=== PATIENT | female | born 1980 | race Caucasian/White ===

== ENCOUNTER 2020-07-14 10:03 | Emergency (ER) | payer OTHER, SELFPAY ==
[2020-07-14 10:32] VITALS: BP 146/82; PULSE 69; RESP 18; TEMP 36.6; O2SAT 100; BMI 34.2
--- NOTE | 2020-07-14 10:57 | HMH.EDUTC ---
[facility] Disposition Clinical Impression: Encounter for laboratory testing for COVID-19 virus Disposition: Home, Self-Care Condition on Discharge: Good Instructions: Preventing the Spread of Coronavirus Discharge Instructions Additional Instructions: You was tested for today for COVID19 your test result should be back within the next 2-4 hours, call back to the [facility] to see if your test results are back and the result You was given a handout with instructions for Self Quarantine and Self isolation for while you wait on test results and what to do if they are positive Referrals: PCP,No [Primary Care Provider] - As needed Forms: Work/School Release Time of Disposition: 11:06 Medical Decision Making - Paddy Inquiry Pt receiving controlled substance: No Paddy was queried for this patient: No Vital Signs: 07/14/20 10:32 Temperature 97.8 F Temperature Source Oral Pulse Rate [Right Brachial] 69 Respiratory Rate 18 Blood Pressure [Right Arm] 146/82 H Blood Pressure Mean [Right Arm] 103 Blood Pressure Source [Right Arm] Automatic Cuff Blood Pressure Position [Right Arm] Sitting 02 Sat by Pulse Oximetry 100 Oxygen Delivery Method Room Air Orders (Tests/Meds): ORDERS Category Date Time Status Covid-19 Nasal PCR ([facility]) Routine Lab 07/14/20 10:18 Received [facility] HPI - General Stated complaint: covid test Time Seen by Provider: 07/14/20 10:58 Mode of Arrival: Ambulatory Source of Information: Patient Limitations: No Limitations Description of Symptoms (Recalled from Triage Doc. by RN): PATIENT NEEDING COVID TEST AFTER BEING EXPOSED TO CO-WORKER LAST WEEK WHO TESTED POSITIVE; DENIES SYMPTOMS HEENT Symptoms (Recalled from RN notes): No Resp Symptoms (Recalled from RN notes): No Skin Symptoms (Recalled from RN notes): No MS Symptoms (Recalled from RN notes): No Functional Status (Recalled from RN notes): WNL - History of Present Illness Provider Complaint: Patient states that she was exposed to co worker last week that recently tested positive for COVID 19 and her employer made her to come and get tested Denies any symptoms - Related Data Home Medications Medication Instructions Recorded Confirmed Buprenorphine HCl/Naloxone HCl 2 each SL DAILY 07/14/20 07/14/20 [Suboxone 8mg/2mg ODT] Allergies Allergy/AdvReac Type Severity Reaction Status Date / Time potassium [POTASSIUM] Allergy Mild Verified 07/14/20 10:36 - Worker's Comp Is this a Worker's Comp case?: No [facility] History - Hepatitis A Screen Drug use history?: No High risk sexual behaviors?: No History of sexually transmitted infection?: No Currently employed?: No Childcare worker?: No Do you have indoor plumbing?: Yes Do you have electricity?: Yes Attestation statement:: This patient has been screened for Hepatitis A risk factors. - Social History Smoking Status: Current every day smoker Tobacco Type: cigarettes # Packs/Day (cigarettes): 1 Alcohol Intake: never Occupational Status: other ROS Obtained: Yes All systems reviewed & no additional complaints, Yes Systems reviewed as appropriate & no additional complaints - Constitutional Constitutional: Reports system reviewed and no additional complaints, except as docu, Denies body ache, Denies chills, Denies fever(s), Denies headache(s) - Eyes Eyes: Reports system reviewed and no additional complaints, except as docu - ENT Ears, Nose, Mouth, and Throat: Reports system reviewed and no additional complaints, except as docu, Denies nasal congestion, Denies nasal discharge, Denies sore throat - Cardiovascular Cardiovascular: Reports system reviewed and no additional complaints, except as docu - Respiratory Respiratory: No chest congestion, No cough, No dyspnea - Gastrointestinal Gastrointestingal: Reports: system reviewed and no additional complaints, except as docu. Denies: diarrhea, nausea, vomiting Physical Exam - General General appearance: alert, in no apparent
[2020-07-14 11:10] VITALS: BP 146/82; PULSE 69; RESP 18; TEMP 36.6; O2SAT 100
== END 2020-07-14 11:12 | disposition home or self-care (01) ==
PROVIDERS: Emergency Provider Nurse Practitioner
DX: Z20.828 Contact with and (suspected) exposure to other viral communicable diseases (principal); F17.210 Nicotine dependence, cigarettes, uncomplicated
CPT/HCPCS: 99201; U0003

== ENCOUNTER → 2022-05-23 15:37 | Outpatient (CLI) | payer BC, SELFPAY ==
[2022-05-23 16:49] LABS: Basophils # 0.1 K/mm3 (0-0.2); Basophils % 1.5 % (0.1-2.0); Eosinophils # 1.3 K/mm3 (0.0-0.4); Eosinophils % 16.9 % (0.1-12.0); Hematocrit 38.6 % (37.0-47.0); Lymphocytes # 2.8 K/mm3 (0.7-4.5); Lymphocytes % 36.1 % (10-50); Mean Corpuscular HGB Conc 31.1 g/dL (31.8-35.4); Mean Corpuscular Hemoglobin 29.4 pg (27.0-31.2); Mean Corpuscular Volume 94.5 fl (81-99); Mean Platelet Volume 8.2 fl (7.4-10.4); Monocytes # 0.4 K/mm3 (0.1-1.0); Monocytes % 5.1 % (1.7-9.3); Neutrophils # 3.1 K/mm3 (1.8-7.8); Neutrophils % 40.4 % (37.0-80.0); Platelet Count 355 K/mm3 (142-424); Red Blood Count 4.09 M/mm3 (4.20-5.40); Red Cell Distribution Width 12.5 % (11.5-17.5); White Blood Count 7.7 K/mm3 (4.8-10.8)
[2022-05-25 08:15] LABS: HIV Screen 4th Generation wRfx Non Reactive (Non Reactive)
[2022-05-27 02:53] LABS: Potassium 3.8 mmoL/L (3.5-5.1); Sodium 137 mmol/L (136-145)
[2022-05-27 02:54] LABS: Anion Gap 20.8 mEq/L (5-15); Bilirubin,Direct < 0.1 mg/dl (0.0-0.4); Bilirubin,Indirect 0.1 mg/dL (0.0-0.9); Bilirubin,Total < 0.2 mg/dl (0.2-1.3); Blood Urea Nitrogen 12 mg/dl (7-17); Calcium 9.1 mg/dl (8.4-10.2); Carbon Dioxide 20 mmol/L (22.0-30.0); Chloride 100 mmol/L (98-107); Creatinine,Serum 1.05 mg/dl (0.52-1.04); Estimated Glomerular Filt Rate 58 ml/min (>60); GFR (African American) 70 ML/MIN (>60); Glucose 89 mg/dl (74-100)
[2022-05-27 02:55] LABS: Alanine Aminotransferase 14 U/L (12-78); Albumin Level 4.1 g/dl (3.5-5.0); Alkaline Phosphatase 62 U/L (38-126); Aspartate Amino Transferase 14 U/L (14-36)
[2022-06-11 17:17] LABS: Hep A Ab, IgM Negative; Hepatitis B Core Antibody IgM Negative; Hepatitis B Surface Antigen Negative; Hepatitis C Antibody 0.2
== END ==
PROVIDERS: Visit Provider Emergency Medicine
DX: F11.20 Opioid dependence, uncomplicated (principal); Z11.4 Encounter for screening for human immunodeficiency virus [HIV]
CPT/HCPCS: 36415; 80048; 80074; 80076; 85025; 86703; G0432

== ENCOUNTER 2022-09-19 09:46 | Emergency (ER) | payer BC, SELFPAY ==
[2022-09-19 11:05] VITALS: BP 140/77; PULSE 58; RESP 20; TEMP 36.8; O2SAT 100; BMI 27.3
--- NOTE | 2022-09-19 11:18 | EXP.UTC ---
Discharge Plan Disposition Patient Disposition: Home, Self-Care Condition: Good Prescriptions Prescriptions: New ibuprofen [IBU] 800 mg tablet 800 mg PO TIDP PRN (Reason: Moderate Pain) Qty: 20 0RF amoxicillin-pot clavulanate 875-125 mg Tablet 1 tab PO Q12H Qty: 20 0RF No Action buprenorphine-naloxone 1 EACH tablet, sublingual 2 each SL DAILY Referrals Follow up/Referrals: Grisel Mendoza APRN [Primary Care Provider] - See instructions Activity Restrictions/Add. Instructions Additional Instructions/Restrictions: Take medication as prescribed Follow up with Dentist as soon as possible Return if needed Straight to ER if any life threatening symptoms Clinical Impressions Clinical Impression: Abscess, dental Stand Alone Forms Stand Alone Forms: Work/School Release Instructions Patient Instructions: DI for Tooth Abscess, DI for Tooth Decay Discharge ED Provider: Sonia Campos [facility] General Stated complaint: RT side mouth pain, possible abcess Mode of Arrival: Ambulatory Source of Information: Patient Limitations: No Limitations Time Seen by Provider: 09/19/22 11:18 Description of Symptoms (Recalled from Triage Doc. by RN): PATIENT C/O SWELLING TO RIGHT SIDE OF FACE THAT STARTED YESTERDAY MORNING D/T POSSIBLE ABSCESS TOOTH HEENT Symptoms (Recalled from RN notes): Yes Resp Symptoms (Recalled from RN notes): No Skin Symptoms (Recalled from RN notes): No MS Symptoms (Recalled from RN notes): No Functional Status (Recalled from RN notes): WNL History of Present Illness Provider Complaint: Patient states that she has several broken and decaying teeth on her right upper gum area States that she woke up with swellign and pressure in her right jaw States that she tried to get into dentist but they couldnt get her in Related Data Home Medications Medication Instructions Recorded Confirmed buprenorphine 8 mg-naloxone 2 mg 2 each SL DAILY ADDICTION 07/14/20 07/14/20 sublingual tablet Previous Rx's Medication Instructions Recorded amoxicillin 875 mg-potassium 1 tab PO Q12H #20 tabs 09/19/22 clavulanate 125 mg tablet ibuprofen 800 mg tablet (IBU) 800 mg PO TIDP PRN Moderate Pain 09/19/22 #20 tabs Allergies Allergy/AdvReac Type Severity Reaction Status Date / Time potassium [POTASSIUM] Allergy Mild Verified 07/14/20 10:36 Worker's Comp Is this a Worker's Comp case?: No PFSH PFSH Disclaimer: The information contained in this section may have been updated after the patient was seen, as this information can be updated by other users. Medical History (Updated 09/19/22 @ 11:23 by Sonia Campos APRN) Anxiety Hypertension Urinary tract infection Surgical History (Updated 09/19/22 @ 11:17 by Dafne Sanz RN) History of section History of spinal surgery Social History (Updated 09/19/22 @ 11:17 by Dafne Sanz RN) Smoking Status: Current every day smoker tobacco type: cigarettes packs per day: 1 alcohol intake: never current occupational status: other Travel in the last 8 weeks: None ROS Obtained: Yes All systems reviewed & no additional complaints except as documented and Yes Systems reviewed as appropriate & no additional complaints except as documented Constitutional Constitutional: Reports system reviewed and no additional complaints, except as documented and Reports as per HPI ENT Ears, Nose, Mouth, and Throat: Reports system reviewed and no additional complaints, except as documented, Reports as per HPI and Reports dental pain (swelling in right jaw area) Physical Exam General General appearance: alert and in no apparent distress Expanded ENT Exam Teeth exam: Present dental caries, fractured tooth #, gingival swelling and other (swelling in right jaw area) Throat exam: Present normal inspection Respiratory Respiratory exam: Present normal lung sounds bilaterally; Absent respiratory distress or wheezes Cardiovascular Card
[2022-09-19 11:23] VITALS: BP 140/77; PULSE 58; RESP 20; TEMP 36.8; O2SAT 100
== END 2022-09-19 11:30 | disposition home or self-care (01) ==
PROVIDERS: Emergency Provider Nurse Practitioner; PCP Nurse Practitioner Family
DX: K04.7 Periapical abscess without sinus (principal)
CPT/HCPCS: 99212; G0463

== ENCOUNTER 2023-02-14 07:22 | Emergency (ER) | payer BC, OTHER, SELFPAY ==
--- NOTE | 2023-02-14 07:29 | ECG_ITS ---
APPROVED REPORT Exam: Resting ECG HR:62 bpm ECG Measurements Heart Rate 62 AXES WV 163 P 46 QRSd 90 QRS 60 QT 412 T 60 QTc 417 Conclusion SINUS RHYTHM NONSPECIFIC T-WAVE ABNORMALITY BORDERLINE ECG UNCONFIRMED REPORT Electronically signed by : Ji Baumann MD 02/14/2023 20:18:56
[2023-02-14 07:31] VITALS: BP 144/92; PULSE 68; RESP 17; TEMP 36.5; O2SAT 98; BMI 22.2
--- NOTE | 2023-02-14 07:34 | XR_ITS ---
FINAL REPORT CLINICAL HISTORY: dyspnea FINDINGS: A single view of the chest was obtained. The heart is normal in size. The mediastinum is unremarkable. Infiltrates, right greater than left, are likely due to acute pneumonia. There is no pleural effusion. There is no pneumothorax. There is no acute osseous abnormality. IMPRESSION: Acute pneumonia, right greater than left. Reviewed, Interpreted and Dictated by Darin Vazquez MD Transcribed by Lea Puri Authenticated and [facility]
[2023-02-14 07:36] VITALS: PULSE 86
--- NOTE | 2023-02-14 07:39 | HMH.EDGENADL ---
Discharge Plan Disposition Patient Disposition: Still a Patient Condition: Fair Prescriptions Prescriptions: New azithromycin 250 mg tablet See Rx Instructions .ROUTE .COMPLEX Qty: 6 0RF Rx Instructions: For 250 mg dose pack: take 500 mg today (day 1), then 250 mg for 4 days (days 2-5) cefdinir 300 mg capsule 300 mg PO BID 7 Days Qty: 14 0RF metronidazole 500 mg tablet 500 mg PO BID 7 Days Qty: 14 0RF No Action buprenorphine-naloxone 1 EACH tablet, sublingual 2 each SL DAILY ibuprofen [IBU] 800 mg tablet 800 mg PO TIDP PRN (Reason: Moderate Pain) Qty: 20 0RF amoxicillin-pot clavulanate 875-125 mg Tablet 1 tab PO Q12H Qty: 20 0RF Referrals Follow up/Referrals: Grisel Mendoza APRN [Primary Care Provider] - See instructions Activity Restrictions/Add. Instructions Additional Instructions/Restrictions: Your medical evaluation today demonstrated several sites of infection. First your urine showed trichomoniasis, and was also suspicious for UTI. Given the fact that you have had chronic intermittent urinary tract infections sometimes those can be untreated sexual transmitted diseases. Gonorrhea and Chlamydia amplification test have been sent please follow-up with primary care doctor regarding the test results of this as they would not be back during her emergency department stay today. Urine culture additionally has been sent and you can follow-up those results in 48 to 72 hours with your primary care physician. Your chest x-ray demonstrated interstitial infiltrates consistent with possible atypical pneumonia versus pneumonitis from your work exposure. We will treat this as a bacterial infection with antibiotics, and please return to the emergency department and/or follow-up with primary care doctor with worsening symptoms. Clinical Impressions Clinical Impression: Acute dyspnea, Atypical pneumonia, UTI (urinary tract infection), Trichomoniasis Discharge ED Provider: Clay Burciaga General Adult HPI <Clay Burciaga MD - Last Filed: 02/14/23 08:12> General Chief complaint: Chest Pain Stated complaint: SOA, Lower back pain Time Seen by Provider: 02/14/23 07:43 Mode of Arrival: Ambulatory Source of Information: Patient Limitations: No Limitations Description of Symptoms (Recalled from ER Triage Doc. by RN): pt comes in with c/o shortness of air, intermittent chest pain both ongoing for 3-4 weeks. pt also c/o kidney pain, pt states she has hx of kidney infections, burning with urination ongoing for 2-3 days. pt reports being seen by someone in her primary care office and being given cipro for a urinary tract infection. pt does take suboxone for IV drug history. pt also states she had a fever yesterday but took ibuprofen. History of Present Illness HPI narrative: 42-year-old female presents with shortness of breath. 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 States that over the last 2 days she has had a change in symptoms she is now having congestion cough that is nonproductive shortness of breath but is also reporting right flank pain with significant history of recurrent UTIs last treated 4 weeks ago with ciprofloxacin. She had fever to 101.0 yesterday took ibuprofen. States that earlier this morning she had a fever of 100.0 at home. Related Data Home Medications Medication Instructions Recorded Confirmed buprenorphine 8 mg-naloxone 2 mg 2 each SL DAILY ADDICTION 07/14/20 02/14/23 sublingual tablet Previous Rx's Medication Instructions Recorded amoxicillin 875 mg-potassium 1 tab PO Q12H #20 tabs 09/19/22 clavulanate 125 mg tablet ibuprofen 800 mg tablet (IBU) 800 mg PO TIDP PRN Moderate Pain 09/19/22 #20 tabs azithromycin 250 mg tablet See Rx Instructions PO .COMPLEX #6 02/14/23 tabs cefdinir 300 mg capsule 300 mg PO BID 7 days #14 caps 0
[2023-02-14 08:01] LABS: Basophils % 0.3 % (0.1-2.0); Eosinophils # 0.4 K/mm3 (0.0-0.4); Eosinophils % 3.4 % (0.1-12.0); Hematocrit 38.4 % (37.0-47.0); Hemoglobin 12.4 g/dL (12.2-16.2); Mean Corpuscular HGB Conc 32.3 g/dL (31.8-35.4); Mean Corpuscular Hemoglobin 28.9 pg (27.0-31.2); Mean Corpuscular Volume 89.5 fl (81-99); Mean Platelet Volume 8.4 fl (7.4-10.4); Monocytes # 0.4 K/mm3 (0.1-1.0); Monocytes % 3.4 % (1.7-9.3); Neutrophils # 10.1 K/mm3 (1.8-7.8); Neutrophils % 77.9 % (37.0-80.0); Platelet Count 343 K/mm3 (142-424); Red Blood Count 4.29 M/mm3 (4.20-5.40); Red Cell Distribution Width 12.8 % (11.5-17.5)
[2023-02-14 08:05] LABS: Coronavirus 19, PCR Not Detected (NotDetected); Influenza A, PCR Not Detected (NotDetected); Influenza B, PCR Not Detected (NotDetected)
[2023-02-14 08:06] VITALS: BP 112/79; PULSE 72; RESP 12; O2SAT 99
--- NOTE | 2023-02-14 08:07 | PC.NURSE ---
RAD at bedside
[2023-02-14 08:12] LABS: Chloride 95 mmol/L (98-107); Potassium 3.7 mmoL/L (3.5-5.1); Sodium 135 mmol/L (136-145)
[2023-02-14 08:15] LABS: Alanine Aminotransferase 18 U/L (12-78); Albumin/Globulin Ratio 1.1 (1.1-1.8); Alkaline Phosphatase 51 U/L (38-126); Anion Gap 15.7 mEq/L (5-15); Aspartate Amino Transferase 26 U/L (14-36); Blood Urea Nitrogen 9 mg/dl (7-17); Carbon Dioxide 28 mmol/L (22.0-30.0); Creatinine Clearance Estimated 117 mL/min (50-200); Estimated Glomerular Filt Rate 92 ml/min (>60); GFR (African American) 112 ML/MIN (>60); Globulin 3.6 g/dL (1.3-3.2); Total Protein,Serum 7.6 g/dl (6.3-8.2)
[2023-02-14 08:16] LABS: Microscopic, Urine URINE MICROSCOPIC (MICROSCOPIC)
[2023-02-14 08:16] LABS: Calcium 8.8 mg/dl (8.4-10.2); Glucose 94 mg/dl (74-100)
--- NOTE | 2023-02-14 08:16 | PC.NURSE ---
Rounded on patient; call light within reach
[2023-02-14 08:20] LABS: C-Reactive Protein 112.7 mg/L (0-4)
[2023-02-14 08:22] LABS: Appearance,Urine CLEAR (Clear); Bilirubin,Urine Negative (Negative); Blood, Urine Negative (Negative); Color,Urine YELLOW (Yellow); Glucose,Urine (UA) Negative (Negative); Ketones,Urine Negative (Negative); Leukocyte Esterase,Urine 2+ (Negative); Nitrate,Urine Negative (Negative); Protein,Urine Negative (Negative); Urobilinogen,Urine 0.2 EU/dl (0.2)
[2023-02-14 08:25] LABS: Urine Pregnancy, HCG Qual. Negative (Negative)
[2023-02-14 08:30] VITALS: BP 115/76; PULSE 61; O2SAT 97
[2023-02-14 08:34] LABS: Procalcitonin 0.341 ng/mL (0.0-2.0)
[2023-02-14 08:45] LABS: Bacteria,Urine 1+ /lpf; WBC,Urine 20-50 #/hpf (0-3)
[2023-02-14 08:46] LABS: Trichomonas,Urine 1+ /lpf
[2023-02-14 09:00] VITALS: BP 107/74; PULSE 50; RESP 17; O2SAT 96
--- NOTE | 2023-02-14 09:00 | PC.NURSE ---
Rounded on patient; pt requested a warm blanket. Call button within reach. Pt resumed resting on ED stretcher at this time
[2023-02-14 09:19] VITALS: BP 107/74; PULSE 51; RESP 12; TEMP 36.6
[2023-02-16 21:16] LABS: Neisseria gonorrhoeae, NAA Negative (Negative)
== END 2023-02-14 09:23 | disposition still patient (30) ==
PROVIDERS: Student in an Organized Health Care Education/Training Program; Emergency Provider Student in an Organized Health Care Education/Training Program; PCP Nurse Practitioner Family
DX: J18.9 Pneumonia, unspecified organism (principal); N39.0 Urinary tract infection, site not specified; F17.210 Nicotine dependence, cigarettes, uncomplicated; R07.9 Chest pain, unspecified
CPT/HCPCS: 71045; 80053; 81001; 81025; 84145; 85025; 86140; 87086; 87491; 87591; 93005; 96361; 96374; 99285; C9803; U0003; U0005

== ENCOUNTER 2024-08-19 14:16 | Outpatient (CLI) | payer OTHER, SELFPAY ==
--- NOTE | 2024-08-19 14:31 | ECG_ITS ---
APPROVED REPORT Exam: Resting ECG HR:62 bpm ECG Measurements Heart Rate 62 AXES ID 162 P 76 QRSd 84 QRS 83 QT 415 T 77 QTc 420 Conclusion SINUS RHYTHM NORMAL ECG UNCONFIRMED REPORT Electronically signed by : Ji Baumann MD 08/20/2024 08:36:09
== END 2024-08-19 23:59 | disposition home or self-care (01) ==
LOC: RT 14:20
PROVIDERS: PCP Nurse Practitioner Family
DX: R94.31 Abnormal electrocardiogram [ECG] [EKG] (principal)
CPT/HCPCS: 93005

== ENCOUNTER 2024-08-26 12:34 | Outpatient (CLI) | payer OTHER, SELFPAY ==
--- NOTE | 2024-08-26 12:57 | ECG_ITS ---
APPROVED REPORT Exam: Resting ECG HR:50 bpm ECG Measurements Heart Rate 50 AXES LA 177 P 40 QRSd 86 QRS 79 QT 458 T 81 QTc 432 Conclusion SINUS BRADYCARDIA BORDERLINE ECG UNCONFIRMED REPORT Electronically signed by : Ji Baumann MD 08/27/2024 17:01:01
== END 2024-08-26 23:59 | disposition home or self-care (01) ==
PROVIDERS: PCP Nurse Practitioner Family; Visit Provider Internal Medicine
DX: R94.31 Abnormal electrocardiogram [ECG] [EKG] (principal)
CPT/HCPCS: 93005

== ENCOUNTER 2025-10-15 11:53 | Outpatient (CLI) | payer OTHER, SELFPAY ==
--- OUTSIDE RECORDS SUMMARY | 2025-10-15 11:56 | XMS_ITS | Clinical Summary ---
Author Organization [facility] Address [address] [place] [address] Phone Care Team Providers Care Qa Test Analyst Name Role Phone No Pcp, Provider Not In [facility] Primary Care [facility] er Unavailable Allergies No known active allergies Medications cyclobenzaprine (FLEXERIL) 5 mg Oral Tablet Take 5 mg by mouth 2 times daily as needed for Muscle spasms. Active Active Problems Problem Noted Date Diagnosed Date At risk for withdrawal 07/27/2024 Intractable nausea and vomiting 07/27/2024 NSVT (nonsustained ventricular tachycardia) 06/18 SVT (supraventricular tachycardia) 07/15/2024 Wound of upper extremity, initial encounter 06/17 Heroin abuse 07/13/2024 Methamphetamine abuse 07/13/2024 Hypokalemia 07/13/2024 Microcytic anemia 07/13/2024 IV drug abuse 07/12/2024 History of heroin abuse 05/03/2021 History of methamphetamine abuse 05/03/2021 Social History Tobacco Use Types Packs/Day Years Used Date Smoking Tobacco: Never Smokeless Tobacco: Never Tobacco Cessation:Counseling Given: Not Answered Comments Unknown Sex and Gender Information Value Date Recorded Sex Assigned at Not on file Legal Sex Female 1:04 PM EDT Gender Identity Not on file Sexual Orientation Not on file Last Filed Vital Signs Vital Sign Reading Time Taken Comments Blood Pressure 166/88 07/29/2024 1:18 PM EDT Pulse 72 07/29/2024 12:14 PM EDT Temperature 37 C (98.6 F) 07/29/2024 12:08 PM EDT Respiratory Rate 18 07/29/2024 12:08 PM EDT Oxygen Saturation 98% 07/29/2024 10:08 AM EDT Inhaled Oxygen Concentration - - Weight 70.1 kg (154 lb 8.7 oz) 07/27/2024 1:40 A M EDT Height 175.3 cm (5' 9 ) 07/27/2024 1:40 AM EDT Body Mass Index 22.82 07/27/2024 1:40 AM EDT Plan of Treatment Health Maintenance Due Date Last Done Comments Annual Wellness Exam 1984 Hepatitis B Vaccine (2 of 3 - 3-dose series) 10/06/1999 09/08/1999 Cervical Cancer Screening 2002 Pap Smear 2002 HPV/Pap Cotest 2011 Breast Cancer Screening 02/15/2025 02/15/2023 COVID-19 Vaccine ( - 2024-2 6 season) 2025 Influenza Vaccine (#1) 2025 DTaP/TDaP/Td (2 - Td or Tdap) 05/03/2031 05/03/2021 Meningococcal B Vaccine Aged Out No l onger eligible based on patient's age to complete this topic Pneumococcal Vaccine 0-49 Aged Out No longer eligible based on patient's age to complete this topic Procedures Procedure Name Priority Date/Time Associated Diagnosis Comments MM MAMMO DIGITAL LOKI SCREEN BILAT Routine 02/15/2023 3:49 PM EDT Screening mammogram, encounter for from Last 3 Months or Most Recently Relevant to Health Maintenance Results * MM MAMMO DIGITAL LOKI SCREEN BILAT (02/15/2023 3:49 PM EDT) Anatomical Region Laterality Modality Breast Bilateral Mammography 02/16/2023 8:29 AM EDT Impressions 02/16/2023 8:29 AM EDT Negative ([id number]) ~ RECOMMENDATION: Routine screening mammogram in 1 year. ~ DISCLAIMER * Any patient with a palpable abnormality, unexplained by breast imaging, should be managed on clinical basis by the attending physician. * Breast imaging has a false negative rate of 15%. * The patient was notified by mail of the results of this examination. *The patient's information was entered into a reminder system with a target due date for the next mammogram, in accordance with the [employer] and the Society of Breast Imaging recommendations. Narrative 02/16/2023 8:29 AM EDT Procedure:MM MAMMO DIGITAL OLKI SCREEN BILAT ~ Reason for exam: screening, asymptomatic. Z12.31-Encounter for screening mammogram for malignant neoplasm of [id number] ~ MM MAMMO DIGITAL LOKI SCREEN BILAT Bilateral CC and MLO view(s) were taken. The breast tissue is heterogeneously dense. This may lower the sensitivity of mammography. Prior study comparison: Compared with prior studies the most recent being No prior studies available for comparison. No mammographic evidence of malignancy. ~ Procedure Note Bradley Osorio III, MD - 02/16/2023 Procedure:MM MAMMO DIGITAL LOKI SCREEN BILAT ~ Reason for exam: screening, asymptomatic. Z12.31-Encounter for screening mammogram for malignant neoplasm of [id number] ~ MM MAMMO DIGITAL LOKI SCREEN BILAT Bilateral CC and MLO view(s) were taken. The breast tissue is heterogeneously dense. This may lower thesensitivity of mammography. Prior study comparison: Compared with prior studies the most recentbeing No prior studies available for comparison. No mammographic evidence of malignancy. ~ IMPRESSION: Negative ([id number]) ~ RECOMMENDATION: Routine screening mammogram in 1 year. ~ DISCLAIMER * Any patient with a palpable abnormality, unexplained by breast imaging, should be managed on clinical basis by the attending physician. * Breast imaging has a false negative rate of 15%. * The patient was notified by mail of the results of this examination. *The patient's information was entered into a reminder system with atarget due date for the next mammogram, in accordance with the [employer] and the Society of Breast Imaging recommendations. us Not In [facility] Provider IMG MAMMOGRAPHY ORDERABLES Final Result from Last 3 Months or Most Recently Relevant to Health Maintenance Insurance [employer] [facility] [place] [address] [employer] [facility] [place] [address] Advance Directives For more information, please contact: [phone] * Full Code (Latest Code Status on File) Date Activated Date Inactivated Comments 07/27/2024 10:43 AM 07/29/2024 7:25 PM * Full Code Date Activated Date Inactivated Comments 07/12/2024 9:09 PM 07/15/2024 9:03 PM Care Teams Qa Test Analyst Relationship Specialty Start Date End Date No Pcp, Provider Not In [facility] PCP - General 07/12/24
--- OUTSIDE RECORDS SUMMARY | 2025-10-15 11:56 | XMS_ITS | Data Portability ---
Author Organization [facility] Address [address] [place] [address] Assessment Encounter Date Assessment Date Assessment LastModified by Organization Details LastModified Time 05/03/2021 05/03/2021 -Counseled regarding prevention of STD's . Counseled regarding contraceptive options . Advised avoidance of tobacco, alcohol, and drugs . Counseled regarding folic acid supplementation, calcium needs and prevention of osteoporosis . BSE reviewed and recommended. -Reports history of abnormal cervical cells, they took a chunk out of my cervix in the office and I'm never doing that again . last pap years ago . encouraged to f/u for pelvic/pap exam and understands risk of cervical cancer, urged repeat testing osmel. -Congrats on continued sobriety, continue suboxone. -Will call with serum results, states it is ok to leave voicemail. [facility] was unable to collect serum, order given to Loren to have drawn in [place] as she states that harsh can always get it . -F/u for pelvic exam/pap osmel. [email or web address] Not available 05/03/2021 19:40:54 02/17/2023 02/17/2023 -Medications were reviewed and any necessary updates and renewals were made, patient instructed to complete as prescribed. -The potential side effects of medications were discussed. -Counseling was done on care goals and ways to prevent future hospitalizations . -Benign exam today. Discussed that I would need to discuss alprazolam therapy with her current addiction medicine team and she has provided a number. -f/u 1 month, sooner as needed. [email or web address] Not available 04/06/2023 14:15:32 03/03/2023 03/03/2023 Patient presents with symptoms of UTI today. Results of dipstick were positive for UTI. Recommend avoiding caffeine, rest and increased fluids. Tylenol or Motrin for pain and discomfort as needed. elevated b/p in office today. agreeable to home monitoring for 2 weeks while keeping a log. will rto if average >130/80. verbalizes understanding of DASH diet guidelines. PDMR appropriate. UDS appropriate. f/u 1 month, sooner as needed. Not available 04/06/2023 14:26:26 05/08/2023 05/08/2023 -elevated b/p in office today. agreeable to home monitoring for 2 weeks while keeping a log. will rto if average >130/80. verbalizes understanding of DASH diet guidelines -CSA reviewed and renewed today, Paddy appropriate, continue medication as prescribed, patient notes benefit in reduction of symptoms. do not suspect abuse, misuse or diversion. UDS today. F/u 3 months, sooner as needed. [email or web address] Not available 05/08/2023 12:24:13 Plan of Treatment Reminders Order Date Submit Date Provider Last Modified By Organization Details Last Modified Time Details Appointments None recorded. Lab culture, urine 2022 023 BAM Strauss, [address], [address], [place], [address], 3 04:56:59 urinalysis, dipstick 2022 023 [email or web address] 41 [facility], [address] [place], [address], 3 12:50:37 drug screen, 14 drugs (detectimed ), urine 2022 023 BAM Strauss, [address], [address], [place], [address], 3 03:36:28 culture, urine 2022 023 BAM Strauss, [address], [address], [place], [address], 3 20:35:54 [facility]inal[facility], dipstick [facility]22 0[email or web address], [address] [place], [address], 3 11:22:56 drug screen, urine 2022 023 [email or web address] 41 [facility], [address] [place], [address], 3 11:22:56 urinalysis, dipstick 2022 023 [email or web address] [facility], [address] [place], [address], 3 16:06:43 culture, urine 2022 023 BAM [facility], [address], [address], [place], [address], 3 16:36:35 TSH + free T4, serum 2020 021 BAM Not available 1 07:37:52 lipid panel, serum 2020 BAM Not available 1 07:37:54 CT + NG + TV, DNA, urine/swab 2020 021 BAM [facility], [address], [address], [place], [address], 1 07:37:55 RPR (rapid plasma reagin), serum 2020 021 BAM Not available 1 07:37:57 hsv (1+2) igg Ab, serum 2020 021 BAM Not available 07:37:56 CBC w/ auto diff 2020 021 BAM Not available 07:37:52 CMP, serum or plasma 2020 021 BAM Not available 1 07:37:53 Referral cardiologis t referral 2022 023 [facility], [address], [address], [place], [address], 3 08:32:35 psychiatris t referral 2022 023 Not available 3 08:43:34 Procedures None recorded. Surgeries None recorded. Imaging XR, cervical spine, 2 or 3 view 2022 023 BAM Not available 3 16:21:40 electrocard iogram 2022 023 [email or web address] [facility], [address] [place], [address], 3 16:33:14 Medication Orders alprazolam 1 mg tablet 2022 023 [email or web address] 41 [facility], [address] [place] [address], [id number], 3 15:01:48 cyclobenzap rine 5 mg tablet 2022 023 [email or web address] 41 [facility], [address] [place] [address], [id number], 3 12:50:37 alprazolam 0.5 mg tablet 2022 023 [email or web address] 41 [facility], [address] [place] [address], [id number], 3 11:08:21 Cipro 500 mg tablet 2022 023 BAM [facility], [address] [address] [place], [id number], 3 10:34:50 Cipro 500 mg tablet [address], [place], [address], 3 10:34:16 Patient TargetsNo targets recorded. Patient Instructions Encounter Date Encounter Id Patient Instructions Last Modified By Organization Details Last Modified Time 03/03/2023 [id number] dash diet: care instructions [email or web address] Not available 04/06/2023 14:26:18 05/08/2023 [id number] high blood pressure: care instructions [email or web address] Not available 05/08/2023 11:40:27 dash diet: care instructions [email or web address] Not available 05/08/2023 11:40:27 Reason for Referral Environmental Protection Officer Referral for At ypical chest pain Referring Physician: Kasandra Leyva [facility], Encounter Date: 01/17/2023 Psychiatrist Referral for Ge neralized anxiety disorder Referring Physician: Kasandra Leyva [facility], Encounter Date: 01/17/2023 Results Created Date Observation Date Name Description Value Unit Range Abnormal Flag Note LastModifiedBy Organization Detail LastModifiedTime 05/03/2005/04/2021 TSH+F REE T4 TSH TNP uIU/m L Test not perfo rmed. No speci men recei pretty. Not Available [facility] ([facility]) [address] [facility], [place], [address], 05/06/2021 07:37:52 05/03/2005/04/2021 TSH+F REE T4 T4,free(dire ct) TNP Test not perfo rmed Not Available [facility] ([facility]) [address] [facility], [place], [address], 05/06/2021 07:37:52 05/03/20 21 05/04/2021 CBC WITH DIFFE RENTI AL/PL ATELE T WBC TNP x10e3 /uL Test not perfo rmed. No speci men recei pretty. Not Available [facility] ([facility]) [address] [facility], [place], [address], 05/06/2021 07:37:52 05/03/20 21 05/04/2021 CBC WITH DIFFE RENTI AL/PL ATELE T RBC TNP Test not perfo rmed Not Available [facility] ([facility]) [address] [place], [address], 05/06/2021 07:37:52 05/03/2005/04/2021 CBC WITH DIFFE RENTI AL/PL ATELE T hemoglobin TNP Test not perfo rmed Not Available [facility] ([facility]) [address] [facility], [place], [address], 05/06/2021 07:37:52 05/03/20 21 05/04/2021 CBC WITH DIFFE RENTI AL/PL ATELE T hematocrit TNP Test not perfo rmed Not Available [facility] ([facility]) [address] [place], [address], 05/06/2021 07:37:52 05/03/20 21 05/04/2021 CBC WITH DIFFE RENTI AL/PL ATELE T MCV [employer] SAL[employer]IST Not Available [facility] ([facility]) [address] [place], [address], 05/06/2021 07:37:52 05/03/20 21 05/04/2021 CBC WITH DIFFE RENTI AL/PL ATELE T MCH [employer] SALES SPECIALIST Not Available [facility] ([facility]) [address] [place], [address], 05/06/2021 07:37:52 05/03/20 21 05/04/2021 CBC WITH DIFFE RENTI AL/PL ATELE T MCHC [employer] SALES SPECIALIST Not Available [facility] ([facility]) [address] [place], [address], 05/06/2021 07:37:52 05/03/20 21 05/04/2021 CBC WITH DIFFE RENTI AL/PL ATELE T RDW [employer] SALES SPECIALIST Not Available [facility] ([facility]) [address] [place], [address], 05/06/2021 07:37:52 05/03/20 21 05/04/2021 CBC WITH DIFFE RENTI AL/PL ATELE T platelets TNP Test not perfo rmed Not Available [facility] ([facility]) [address] [place], [address], 05/06/2021 07:37:52 05/03/20 21 05/04/2021 CBC WITH DIFFE RENTI AL/PL ATELE T neutrophils TNP Test not perfo rmed Not Available [facility] ([facility]) [address] [place], [address], 05/06/2021 07:37:52 05/03/20 21 05/04/2021 CBC WITH DIFFE RENTI AL/PL ATELE T lymphs TNP Test not perfo rmed Not Available [facility] ([facility]) [address] [place], [address], 05/06/2021 07:37:52 05/03/20 21 05/04/2021 CBC WITH DIFFE RENTI AL/PL ATELE T monocytes TNP Test not perfo rmed Not Available [facility] ([facility]) [address] [place], [address], 05/06/2021 07:37:52 05/03/20 21 05/04/2021 CBC WITH DIFFE RENTI AL/PL ATELE T eos TNP Test not perfo rmed Not Available [facility] ([facility]) [address] [facility], [address], 05/06/2021 07:37:52 05/03/20 21 05/04/2021 CBC WITH DIFFE RENTI AL/PL ATELE T basos [employer] SAL[employer] SPECIALIST Not Available [facility] ([facility]) [address] [place], [address], 05/06/2021 07:37:52 05/03/20 21 05/04/2021 CBC WITH DIFFE RENTI AL/PL ATELE T immature cells [employer] SAL[employer] SPECIALIST Not Available [facility] ([facility]) [address] [place], [address], 05/06/2021 07:37:52 05/03/20 21 05/04/2021 CBC WITH DIFFE RENTI AL/PL ATELE T neutrophils (absolute) [employer] SAL[employer] SPECIALIST Not Available [facility] ([facility]) [address] [place], [address], 05/06/2021 07:37:52 05/03/20 21 05/04/2021 CBC WITH DIFFE RENTI AL/PL ATELE T lymphs (absolute) TNP Test not perfo rmed Not Available [facility] ([facility]) [address] [place], [address], 05/06/2021 07:37:52 05/03/20 21 05/04/2021 CBC WITH DIFFE RENTI AL/PL ATELE T monocytes(ab solute) [employer] SAL[employer] SPECIALIST Not Available [facility] ([facility]) [address] [place], [address], 05/06/2021 07:37:52 05/03/20 21 05/04/2021 CBC WITH DIFFE RENTI AL/PL ATELE T eos (absolute) TNP Test not perfo rmed Not Available [facility] ([facility]) [address] [place], [address], 05/06/2021 07:37:52 05/03/20 21 05/04/2021 CBC WITH DIFFE RENTI AL/PL ATELE T baso (absolute) TNP Test not perfo rmed Not Available [facility] ([facility]) [address] [facility], [place], [address], 05/06/2021 07:37:52 05/03/20 21 05/04/2021 CBC WITH DIFFE RENTI AL/PL ATELE T immature granulocytes [employer] SAL[employer] SPECIALIST Not Available [facility] ([facility]) [address] [facility], [place], [address], 05/06/2021 07:37:52 05/03/20 21 05/04/2021 CBC WITH DIFFE RENTI AL/PL ATELE T immature grans (abs) [employer] SAL[employer] SPECIALIST Not Available [facility] ([facility]) [address] [facility], [place], [address], 05/06/2021 07:37:52 05/03/20 21 05/04/2021 CBC WITH DIFFE RENTI AL/PL ATELE T NRBC [employer] SALES SPECIALIST Not Available [facility] ([facility]) [address] [facility], [place], [address], 05/06/2021 07:37:52 05/03/20 21 05/04/2021 CBC WITH DIFFE RENTI AL/PL ATELE T hematology comments: [employer] SAL[employer] SPECIALIST Not Available [facility] ([facility]) [address] [facility], [place], [address], 05/06/2021 07:37:52 05/03/20 21 05/04/2021 COMP. METAB OLIC PANEL (14) glucose TNP mg/dL Test not perfo rmed. No speci men recei pretty. Not Available [facility] ([facility]) [address] [facility], [place], [address], 05/06/2021 07:37:53 05/03/20 21 05/04/2021 COMP. METAB OLIC PANEL (14) BUN TNP Test not perfo rmed Not Available [facility] ([facility]) [address] [facility], [place], [address], 05/06/2021 07:37:53 05/03/20 21 05/04/2021 COMP. METAB OLIC PANEL (14) creatinine TNP Test not perfo rmed Not Available [facility] ([facility]) [address] [facility], [place], [address], 05/06/2021 07:37:53 05/03/20 21 05/04/2021 COMP. METAB OLIC PANEL (14) eGFR if nonafricn AM [employer] SAL[employer] SPECIALIST Not Available [facility] ([facility]) [address] [facility] [place] [place], [address], 05/06/2021 07:37:53 05/03/20 21 05/04/2021 COMP. METAB OLIC PANEL (14) eGFR if africn AM [employer] SALES SPECIALIST Not Available [facility] ([facility]) [address] [facility], [place], [address], 05/06/2021 07:37:53 05/03/20 21 05/04/2021 COMP. METAB OLIC PANEL (14) BUN/creatini ne ratio [employer] SAL[employer] SPECIALIST Not Available [facility] ([facility]) [address] [facility], [place], [address], 05/06/2021 07:37:53 05/03/20 21 05/04/2021 COMP. METAB OLIC PANEL (14) sodium TNP Test not perfo rmed Not Available [facility] ([facility]) [address] [facility], [place], [address], 05/06/2021 07:37:53 05/03/20 21 05/04/2021 COMP. METAB OLIC PANEL (14) potassium TNP Test not perfo rmed Not Available [facility] ([facility]) [address] [facility], [place], [address], 05/06/2021 07:37:53 05/03/20 21 05/04/2021 COMP. METAB OLIC PANEL (14) chloride TNP Test not perfo rmed Not Available [facility] ([facility]) [address] [facility], [place], [address], 05/06/2021 07:37:53 05/03/20 21 05/04/2021 COMP. METAB OLIC PANEL (14) carbon dioxide, total TNP Test not perfo rmed Not Available [facility] ([facility]) [address] [facility], [place], [address], 05/06/2021 07:37:53 05/03/20 21 05/04/2021 COMP. METAB OLIC PANEL (14) calcium TNP Test not perfo rmed Not Available [facility] ([facility]) [address] [facility], [place], [address], 05/06/2021 07:37:53 05/03/20 21 05/04/2021 COMP. METAB OLIC PANEL (14) protein, total TNP Test not perfo rmed Not Available [facility] ([facility]) [address] [facility] [place] [place], [address], 05/06/2021 07:37:53 05/03/20 21 05/04/2021 COMP. METAB OLIC PANEL (14) albumin TNP Test not perfo rmed Not Available [facility] ([facility]) [address] [facility], [place], [address], 05/06/2021 07:37:53 05/03/20 21 05/04/2021 COMP. METAB OLIC PANEL (14) globulin, total [employer] SALES SPECIALIST Not Available [facility] ([facility]) [address] [facility] [place] [place], [address], 05/06/2021 07:37:53 05/03/20 21 05/04/2021 COMP. METAB OLIC PANEL (14) A/G ratio [employer] SAL[employer] SPECIALIST Not Available [facility] ([facility]) [address] [facility] [place] [place], [address], 05/06/2021 07:37:53 05/03/20 21 05/04/2021 COMP. METAB OLIC PANEL (14) bilirubin, total TNP Test not perfo rmed Not Available [facility] ([facility]) [address] [place], [address], 05/06/2021 07:37:53 05/03/20 21 05/04/2021 COMP. METAB OLIC PANEL (14) alkaline phosphatase TNP Test not perfo rmed Not Available [facility] ([facility]) [address] [place], [address], 05/06/2021 07:37:53 05/03/20 21 05/04/2021 COMP. METAB OLIC PANEL (14) AST (SGOT) TNP Test not perfo rmed Not Available [facility] ([facility]) [address] [place], [address], 05/06/2021 07:37:53 05/03/20 21 05/04/2021 COMP. METAB OLIC PANEL (14) ALT (SGPT) TNP Test not perfo rmed Not Available [facility] ([facility]) [address] [place], [address], 05/06/2021 07:37:53 05/03/20 21 05/04/2021 LIPID PANEL cholesterol, total TNP mg/dL Test not perfo rmed. No speci men recei pretty. Not Available [facility] ([facility]) [address] [place], [address], 05/06/2021 07:37:54 05/03/20 21 05/04/2021 LIPID PANEL triglyceride s TNP Test not perfo rmed Not Available [facility] ([facility]) [address] [place], [address], 05/06/2021 07:37:54 07/19/05/04/2021 LIPID PANEL HDL cholesterol TNP Test not perfo rmed Not Available [facility] ([facility]) [address] [place], [address], 05/06/2021 07:37:54 05/03/20 21 05/04/2021 LIPID PANEL VLDL cholesterol brittany TNP mg/dL Unabl e to calcu late resul t since non-n umeri c resul t obtai germain for compo nent test. Not Available [facility] ([facility]) [address] [facility], [place], [address], 05/06/2021 07:37:54 05/03/20 21 05/04/2021 LIPID PANEL LDL chol calc ([facility]) [employer] SAL[employer] SPECIALIST Not Available [facility] ([facility]) [address] [facility], [place], [address], 05/06/2021 07:37:54 05/03/2005/04/2021 LIPID PANEL comment: [employer] SALES SPECIALIST Not Available [facility] ([facility]) [address] [place], [address], 05/06/2021 07:37:54 05/03/2005/04/2021 CT, NG, TRICH VAG BY ANNIE chlamydia by ANNIE Negati ve negati ve Not Available [facility] ([facility]) [address] [place], [address], 05/06/2021 07:37:55 05/03/20 21 05/04/2021 CT, NG, TRICH VAG BY ANNIE gonococcus by ANNIE Negati ve negati ve Not Available [facility] ([facility]) [address] [place], [address], 05/06/2021 07:37:55 05/03/20 21 05/06/2021 CT, NG, TRICH VAG BY ANNIE trich vag by ANNIE Positi ve negati ve abnormal Not Available [facility] ([facility]) [address] [place], [address], 05/06/2021 07:37:55 05/03/20 21 05/04/2021 HSV 1 AND 2-SPE C AB, IGG W/RFX hsv 1 IgG, type spec TNP index Test not perfo rmed. No speci men recei pretty. Negat pastora <0.91 Equiv ocal 0.91 - 1.09 Posit pastora >1.09 Note: Negat pastora indic ates no antib odies detec rober to HSV-1 . Equiv ocal may sugge st early infec tion. If clini dana appro priat e, retes t at later date. Posit pastora indic ates antib odies detec rober to HSV-1 . Not Available [facility] ([facility]) [address] [facility], [place], [address], 05/06/2021 07:37:56 05/03/20 21 05/04/2021 HSV 1 AND 2-SPE C AB, IGG W/RFX hsv 2 IgG, type spec TNP Test not perfo rmed Not Available [facility] ([facility]) [address] [facility], [place], [address], 05/06/2021 07:37:56 05/03/20 21 05/04/2021 RPR, RFX QN RPR/C ONFIR M TP RPR TNP Test not perfo rmed. No speci men recei pretty. Not Available [facility] ([facility]) [address] [facility], [place], [address], 05/06/2021 07:37:57 05/03/20 21 05/04/2021 SPECI MEN STATU S REPOR T specimen status report TNP Test not perfo rmed. No speci men recei pretty. TEST: 75429 6 TSH+F ree T4 66257 9 CBC With Diffe renti al/Pl atele t 62322 0 Comp. Metab olic Panel (14) 29161 6 Lipid Panel 28471 2 HSV 1 and 2-Spe c Ab, IgG w/Rfx 68180 5 RPR, Rfx Qn RPR/C onfir m TP Not Available [facility] ([facility]) [address] [facility], [place], [address], 05/06/2021 07:37:58 01/18/20 23 01/20/2023 URINE CULTU RE, ROUTI NE urine culture, routine Final report abnormal Not Available [facility] ([facility]) [address] [facility], [place], [address], 01/20/2023 16:36:35 01/18/20 23 01/20/2023 URINE CULTU RE, ROUTI NE result 1 COMMEN T abnormal Esche js a coli, ident ified by an autom ated bioch emica l syste m. Cefaz jorge with an ANGELA <=16 predi cts susce ptibi lity to the oral agent s cefac elia, cefdi jose, cefpo doxim e, cefpr ozil, cefur oxime , cepha lexin , and lorac arbef when used for thera py of uncom plica rober urina ry tract infec tions due to E. coli, Klebs iella pneum oniae , and Prote us mirab ilis. Great er than 100,0 00 colon y formi ng units per mL Not Available [facility] ([facility]) [address] [facility], [place], [address], 01/20/2023 16:36:35 01/18/20 23 01/20/2023 URINE CULTU RE, ROUTI NE antimicrobia l susceptibili ty Commen t S = Susce ptibl e; I = Inter media te; R = Resis tant P = Posit pastora; N = Negat pastora MICS are expre ssed in micro grams per mL Antib iotic RSLT# 1 RSLT# 2 RSLT# 3 RSLT# 4 Amoxi cilli n/Cla vulan ic Acid S =8 Ampic illin R>=32 Cefaz jorge S =16 Cefep yanci S<=0. 12 Ceftr iaxon e S<=0. 25 Cefur oxime S =4 Cipro floxa karie S<=0. 25 Ertap enem S<=0. 12 Genta micin S<=1 Imipe nem S<=0. 25 Levof loxac in S<=0. 12 Merop enem S<=0. 25 Nitro furan toin S<=16 Piper acill in/Ta zobac de oliveira S<=4 Tetra cycli ne S<=1 Tobra mycin S<=1 Trime thopr im/Fung lfa S<=20 Not Available [facility] ([facility]) [address], [place], [address], 01/20/2023 16:36:35 01/18/20 23 01/17/2023 urina lysis , dipst ick Leukocytes Small Not Available [address] [place], [address], 01/17/2023 13:16:26 01/18/20 23 01/17/2023 urina lysis , dipst ick Nitrite positi ve Not Available [address] [place], [address], 01/17/2023 13:16:26 01/18/20 23 01/17/2023 urina lysis , dipst ick Urobilinogen .2 Not Available [address] [place], [address], 01/17/2023 13:16:26 01/18/20 23 01/17/2023 urina lysis , dipst ick Protein 30 Not Available [address] [place], [address], 01/17/2023 13:16:26 01/18/20 23 01/17/2023 urina lysis , dipst ick pH 6.0 Not Available [address] [place], [address], 01/17/2023 13:16:26 01/18/20 23 01/17/2023 urina lysis , dipst ick Blood Small Not Available [address] [place], [address], 01/17/2023 13:16:26 01/18/20 23 01/17/2023 urina lysis , dipst ick Specific [place] 1.025 Not Available [address] [place], [address], 01/17/2023 13:16:26 01/18/20 23 01/17/2023 urina lysis , dipst ick Ketone Negati ve Not Available [address] [place], [address], 01/17/2023 13:16:26 01/18/20 23 01/17/2023 urina lysis , dipst ick Bilirubin Negati ve Not Available [address] [place], [address], 01/17/2023 13:16:26 01/18/20 23 01/17/2023 urina lysis , dipst ick Glucose Negati ve Not Available [address] [place], [address], 01/17/2023 13:16:26 01/18/20 23 01/17/2023 urina lysis , dipst ick Appearance Cloudy Not Available [address] [place], [address], 01/17/2023 13:16:26 01/18/20 23 01/17/2023 urina lysis , dipst ick Color Dark Yellow Not Available [address] [place], [address], 01/17/2023 13:16:26 03/03/20 23 03/06/2023 URINE CULTU RE, ROUTI NE urine culture, routine Final report Not Available [facility] ([facility]) [address] [facility], [place], [address], 03/06/2023 20:35:54 03/03/20 23 03/06/2023 URINE CULTU RE, ROUTI NE result 1 COMMEN T Mixed uroge nital marcus 25,00 0-50, 000 colon y formi ng units per mL Not Available [facility] ([facility]) [address] [facility], [place], [address], 03/06/2023 20:35:54 03/03/20 23 03/03/2023 drug scree n, urine Amphetamines : negati ve Not Available [address] [place], [address], 03/03/2023 10:17:12 03/03/20 23 03/03/2023 drug scree n, urine Cannabinoids : negati ve Not Available [address] [place], [address], 03/03/2023 10:17:12 03/03/20 23 03/03/2023 drug scree n, urine Cocaine: negati ve Not Available [address] [place], [address], 03/03/2023 10:17:12 03/03/20 23 03/03/2023 drug scree n, urine Opiates: negati ve Not Available [address] [place], [address], 03/03/2023 10:17:12 03/03/20 23 03/03/2023 drug scree n, urine Phenocyclidi ne: negati ve Not Available [address] [place], [address], 03/03/2023 10:17:12 03/03/20 23 03/03/2023 drug scree n, urine Barbiturates : negati ve Not Available [address] [place], [address], 03/03/2023 10:17:12 03/03/20 23 03/03/2023 drug scree n, urine Benzodiazepi mike: positi ve Not Available [address] [place], [address], 03/03/2023 10:17:12 03/03/20 23 03/03/2023 drug scree n, urine Ethanol: negati ve Not Available [address] [place], [address], 03/03/2023 10:17:12 03/03/20 23 03/03/2023 drug scree n, urine Hallucinogen s: negati ve Not Available [address] [place], [address], 03/03/2023 10:17:12 03/03/20 23 03/03/2023 drug scree n, urine Inhalants: negati ve Not Available [address] [place], [address], 03/03/2023 10:17:12 03/03/20 23 03/03/2023 drug scree n, urine Anabolic Steroids: negati ve Not Available [address] [place], [address], 03/03/2023 10:17:12 03/03/20 23 03/03/2023 drug scree n, urine Other: negati ve Not Available [address] [place], [address], 03/03/2023 10:17:12 03/03/20 23 03/03/2023 urina lysis , dipst ick Leukocytes Small Not Available [address] [place], [address], 03/03/2023 10:04:23 03/03/20 23 03/03/2023 urina lysis , dipst ick Nitrite negati ve Not Available [address] [place], [address], 03/03/2023 10:04:23 03/03/20 23 03/03/2023 urina lysis , dipst ick Urobilinogen .2 Not Available [address] [place], [address], 03/03/2023 10:04:23 03/03/20 23 03/03/2023 urina lysis , dipst ick Protein Trace Not Available [address] [place], [address], 03/03/2023 10:04:23 03/03/20 23 03/03/2023 urina lysis , dipst ick pH 6.0 Not Available [address] [place], [address], 03/03/2023 10:04:23 03/03/20 23 03/03/2023 urina lysis , dipst ick Blood Hemoly zed: Trace Not Available [address] [place], [address], 03/03/2023 10:04:23 03/03/20 23 03/03/2023 urina lysis , dipst ick Specific [place] 1.030 Not Available [facility] [address] [place], [address], 03/03/2023 10:04:23 03/03/20 23 03/03/2023 urina lysis , dipst ick Ketone Negati ve Not Available [address] [place], [address], 03/03/2023 10:04:23 03/03/20 23 03/03/2023 urina lysis , dipst ick Bilirubin Negati ve Not Available [address] [place], [address], 03/03/2023 10:04:23 03/03/20 23 03/03/2023 urina lysis , dipst ick Glucose Negati ve Not Available [address] [place], [address], 03/03/2023 10:04:23 03/03/20 23 03/03/2023 urina lysis , dipst ick Appearance Slight ly Cloudy Not Available [address] [place], [address], 03/03/2023 10:04:23 03/03/20 23 03/03/2023 urina lysis , dipst ick Color Brown Not Available [address] [place], [address], 03/03/2023 10:04:23 05/08/20 23 05/11/2023 URINE CULTU RE, ROUTI NE urine culture, routine Final report Not Available [facility] ([facility]) [address] [facility], [place], [address], 05/11/2023 04:56:59 05/08/2005/11/2023 URINE CULTU RE, ROUTI NE result 1 Commen t Great er than 2 organ isms recov ered, none predo minan t. Pleas e submi t anoth er sampl e if clini dana indic ated. 25,00 0-50, 000 colon y formi ng units per mL Not Available [facility] ([facility]) [address] [facility], [place], [address], 05/11/2023 04:56:59 05/08/2005/11/2023 URINE CULTU RE, KELSYI NE result 2 Not applic able Not Available [facility] ([facility]) [address] [facility], [place], [address], 05/11/2023 04:56:59 05/08/20 23 05/15/2023 COMPL IANCE DRUG JEANNA SIS, UR summary report (summary) FINAL ===== ===== ===== ===== ===== ===== ===== ===== ===== ===== ===== ===== ===== === TOXAS SURE COMP DRUG JEANNA SIS,U R ===== ===== ===== ===== ===== ===== ===== ===== ===== ===== ===== ===== ===== === Test Resul t Flag Units Drug Prese nt Metha mphet amine 3247 ng/mg creat Sourc es of metha mphet amine inclu de illic it sourc es, as a sched uled presc ripti on medic ation , as a metab olite of some presc ripti on drugs , or use of an l-met hamph etami ne inhal er. Alpra zolam 1458 ng/mg creat A moder ate to large amoun t of alpra zolam is prese nt; alpha -hydr oxyal prazo perez is not prese nt. This is an atypi brittany resul t. Altho ugh patie nts with unusu al metab olic profi les exist , they are rare. Revie w of previ ous drug scree n resul ts or colle ction of a urine sampl e sever al hours after a WITNE SSED dose of the drug may help to montrell fy the subje ct's abili ty to produ ce metab olite . Sourc e of alpra zolam is a sched uled presc ripti on medic ation . Bupre norph ine 134 ng/mg creat Norbu preno rphin e 324 ng/mg creat Sourc e of bupre norph ine is a sched uled presc ripti on medic ation . Norbu preno rphin e is an expec rober metab olite of bupre norph ine. Ibupr ofen PRESE NT ===== ===== ===== ===== ===== ===== ===== ===== ===== ===== ===== ===== ===== === Test Resul t Flag Units Ref Range Creat inine 105 mg/dL >=20 ===== ===== ===== ===== ===== ===== ===== ===== ===== ===== ===== ===== ===== === Decla red Medic ation s: Medic ation list was not provi ded. ===== ===== ===== ===== ===== ===== ===== ===== ===== ===== ===== ===== ===== === For clini brittany consu ltati on, pleas e call [phone]. ===== ===== ===== ===== ===== ===== ===== ===== ===== ===== ===== ===== ===== === Not Available [facility] ([facility]) [address] [facility], [place], [address], 2023 03:36:27 05/08/20 23 05/15/2023 COMPL IANCE DRUG JEANNA SIS, UR pdf . Not Available [facility] ([facility]) [address] [facility], [place], [address], 2023 03:36:27 05/08/20 23 05/08/2023 urina lysis , dipst ick Leukocytes Small Not Available [address] [place], [address], 05/08/2023 11:00:17 05/08/20 23 05/08/2023 urina lysis , dipst ick Nitrite negati ve Not Available [address] [place], [address], 05/08/2023 11:00:17 05/08/20 23 05/08/2023 urina lysis , dipst ick Urobilinogen .2 Not Available [address] [place], [address], 05/08/2023 11:00:17 05/08/20 23 05/08/2023 urina lysis , dipst ick Protein Negati ve Not Available [address] [place], [address], 05/08/2023 11:00:17 05/08/20 23 05/08/2023 urina lysis , dipst ick pH 6.0 Not Available [address] [place], [address], 05/08/2023 11:00:17 05/08/2005/08/2023 urina lysis , dipst ick Blood Non-He molyze d: Trace Not Available [address] [place], [address], 05/08/2023 11:00:17 05/08/2005/08/2023 urina lysis , dipst ick Specific [place] 1.025 Not Available [address] [place], [address], 05/08/2023 11:00:17 05/08/20 23 05/08/2023 urina lysis , dipst ick Ketone Negati ve Not Available [address] [place], [address], 05/08/2023 11:00:17 05/08/2005/08/2023 urina lysis , dipst ick Bilirubin Negati ve Not Available [address] [place], [address], 05/08/2023 11:00:17 05/08/2005/08/2023 urina lysis , dipst ick Glucose Negati ve Not Available [address] [place], [address], 05/08/2023 11:00:17 05/08/2005/08/2023 urina lysis , dipst ick Appearance Turbid Not Available [address] [place], [address], 05/08/2023 11:00:17 05/08/2005/08/2023 urina lysis , dipst ick Color Dark Yellow Not Available [facility] [address] [place], [address], 05/08/2023 11:00:17 01/18/20 23 01/17/2023 XR, cervi brittany spine , 2 or 3 view No observ ation record ed. Not Available 2022 11:08:07 01/18/20 23 01/17/2023 [facility] No observ ation record ed. [email or web address] [facility] [address] [place], [address], 01/19/2023 11:01:17 01/20/20 23 01/17/2023 elect [facility] eliudgr am No observ ation record ed. BARCODE [facility] [address] [place], [address], 01/19/2023 09:45:43 02/15/20 23 02/14/2023 XR, chest , 2 view No observ ation record ed. [email or web address] [place] [address], [place], [address], 02/19/2023 18:17:33 02/15/20 23 02/14/2023 elect [facility] diogr am No observ ation record ed. [email or web address] [facility] [address], [place], [address], 02/19/2023 18:17:26 02/22/20 23 02/15/2023 MAMMO , scree hayley, bilat eral No observ ation record ed. [email or web address] Not Available 02/13 23:38:14 08/20/20 24 08/19/2024 [facility] No observ ation record ed. [email or web address] [facility] [address], [place], [address], 08/27/2024 15:05:06 Result Notes None recorded. Problems Name Problem SNOMED Code Status Onset Date Resolution Date Notes Provider Name and Address Organization Details Recorded Time History of heroin abuse 338126442407 105 Active 2020 Grisel Mendoza APRN [address], [place], [address], [place] - [facility] 14:21:03 History of methamphe tamine abuse 636481063120 37901 Active 2020 Grisel Mendoza APRN [address], [place], [address], [place] [facility] 3 14:21:03 History of cervical spine fusion 296171914912 1 Active 2020 Grisel Mendoza APRN [address], [place], [address], [place] [facility] 3 14:21:03 History of dysplasia of cervix 924833204 Active 2020 Grisel Mendoza APRN [address], [place], [address], [place] [facility] 3 14:21:03 Trichomon al vaginitis 230163095 Completed 202004/06/2023 Grisel Mendoza APRN [address], [place], [address], [place] [facility] 3 14:13:37 Anxiety disorder 141327704 Active 2022 Grisel Mendoza APRN [address], [place], [address], [place] [facility] 3 14:21:03 Panic disorder 234372006 Active 2022 Grisel Mendoza APRN [address], [place], [address], [place] [facility] 3 14:21:03 Problem Notes None recorded. Procedures Surgical History Date Name Laterality Status Provider Name and Address Organization Details Recorded Time 02/18/20 Medication Reconcilliation completed February [place] - [facility] 02/17/2023 10:11:02 Unlisted procedure spine completed Grisel Mendoza APRN [address], [place], [address], [place] - [facility] 02/17/2023 10:40:41 delivery completed Francisco Newberryedwin [place] - [facility] 05/03/2021 08:35:33 extraction of wisdom tooth completed Francisco Newberryedwin [place] - [facility] 05/03/2021 08:35:56 Imaging Results None recorded. Procedure Notes None recorded. Medical Equipment None Reported. Allergies No known drug allergies Medications Name Sig Start Date Stop Date Status Note LastModified by Organization Details LastModified Time azithromy karie 250 mg tablet 03/02 completed Not Available Not Available Not Available ibuprofen 800 mg tablet 01/17 completed Not Available Not Available Not Available alprazola m 1 mg tablet Take by oral route for 30 days. 06/06 completed Not Available Not Available Not Available Lidocaine Viscous 2 % mucosal solution APPLY TO AFFECTED AREA EVERY 4 HOURS NEEDED FOR PAIN 05/03 completed Not Available Not Available Not Available hydrocodo ne 5 mg-acetam inophen 500 mg capsule take 1 capsule by oral route every 4-6 hours as needed for 14 days 09/13 completed Hydrocod one-Acet aminophe n Oral Capsule 5-500 mg;Recor ded Status: Recorded on: 09/04/20 09 4:15PM;D iscontin ued Status: Disconti nued on: 09/13/20 11 2:18PM;U ser: gored;Es t. Completi on: 09/18/20 09;Indic ation: Pain - (16.7809 00) Not Available Not Available Not Available Medrol (Levar) 4 mg tablets in a dose pack take as directed for 6 days 12/06 completed Medrol (Levar) Oral Tablets, Dose Pack 4 mg;Recor ded Status: Recorded on: 10/04/20 11 10:14AM; Disconti nued Status: Disconti nued on: 12/06/19 12 1:34PM;U ser: gored;Es t. Completi on: 10/10/20 11;Print ed: 10/04/20 11 Not Available Not Available Not Available metronida zole 500 mg tablet TAKE 4 TABLETS BY MOUTH ONCE 03/02 completed Not Available Not Available Not Available Alesse (28) 0.1 mg-20 mcg tablet take 1 tablet by oral route once daily for 28 days 09/13 completed Alesse-2 8 Oral Tablet 0.1-20 mg-mcg;R ecorded Status: Recorded on: 12/02/19 09 10:23AM; Disconti nued Status: Disconti nued on: 09/13/20 11 2:18PM;U ser: taylorc; Est. Completi on: 11/03/19 10;Indic ation: Pregnanc y Contrace ption - () Not Available Not Available Not Available Tessalon Perles 100 mg capsule take 1 capsule (100 mg) by oral route 3 times per day prn cough 12/06 completed Tessalon Perles Oral Capsule 100 mg;Recor ded Status: Recorded on: 10/04/20 11 10:14AM; Disconti nued Status: Disconti nued on: 12/06/19 12 1:34PM;U ser: gored;Es t. Completi on: 10/14/20 11;Print ed: 10/04/20 11 Not Available Not Available Not Available alprazola m 0.5 mg tablet Take 1 tablet every day by oral route as needed for 14 days. active Not Available Not Available No t Available alprazola m 0.25 mg tablet Take one tablet every day by oral route as needed for 14 days after completi ng previous 0.5mg prescrip tion 2022 active weaning dose to d/c Not Available Not Available Not Available Celexa 20 mg tablet take 1 tablet (20 mg) by oral route once daily for 30 days 12/06 completed Celexa Oral Tablet 20 mg;Recor ded Status: Recorded on: 09/13/20 11 2:51PM;D iscontin ued Status: Disconti nued on: 12/06/19 12 1:34PM;U ser: keefk;Es t. Completi on: 12/12/19 12;Indic ation: Depressi on - (05.3110 00);Prin rober: 09/13/20 11 Not Available Not Available Not Available Cipro 500 mg tablet Take 1 tablet every 12 hours by oral route for 7 days. 05/08 completed Not Available Not Available Not Available cefdinir 300 mg capsule 03/02 completed Not Available Not Available Not Available amoxicill in 875 mg-potass ium clavulana te 125 mg tablet 01/17 completed Not Available Not Available Not Available buprenorp peyton 8 mg-naloxo ne 2 mg sublingua l tablet DISSOLVE 2 TABLETS UNDER THE TONGUE EVERY DAY active Not Available Not Available No t Available cyclobenz aprine 5 mg tablet Take 1 tablet twice a day by oral route as needed for 30 days. active Not Available Not Available No t Available Prenate Elite 90 mg-1 mg-50 mg tablet 1 po qd take with food 12/02 completed PRENATE ELITE Oral Tablet 90-1-50 mg;Recor ded Status: Recorded on: 07/19/20 08 10:03PM; Disconti nued Status: Disconti nued on: 12/02/19 09 10:02AM; User: [email or web address] Not Available Not Available Not Available Repliva 21/7 151 mg-200 mg-1 mg tablet 1 po qd take with food 12/02 completed Repliva 21/7 Oral Tablet 151-200- 1 mg;Recor ded Status: Recorded on: 07/19/20 08 10:02PM; Disconti nued Status: Disconti nued on: 12/02/19 09 10:02AM; User: [email or web address] Not Available Not Available Not Available Plan B One-Step 1.5 mg tablet take 1 tablet by oral route daily for 1 day 09/13 completed Plan B One-Step Oral Tablet 1.5 mg;Recor ded Status: Recorded on: 03/30/20 10 2:57PM;D iscontin ued Status: Disconti nued on: 09/13/20 11 2:18PM;U ser: bakerc;E st. Completi on: 03/31/20 10 Not Available Not Available Not Available buprenorp peyton 4 mg-naloxo ne 1 mg sublingua l film 01/17 completed Not Available Not Available Not Available Vitals Date Recorded Body weight Body temperature Heart rate Oxygen saturation Respiratory rate Pain severity - 0-10 verbal numeric rating [Score] - Reported Body mass index (BMI) Body height Systolic And Diastolic Provider Name and Address Organization Details Last Updated DateTime 3 74490.5 1 g 97.9 [degF] 60 /min 96 % 18 /min 6 26.9 kg/m2 175.26 cm 104/68 mm[Hg] Lavern Riggins [place] - [facility] 3 13:11:07 Date Recorded Body height Body mass index (BMI) Body weight Heart rate Oxygen saturation Respiratory rate Pain severity - 0-10 verbal numeric rating [Score] - Reported Systolic And Diastolic Provider Name and Address Organization Details Last Updated DateTime 3 175.26 cm 26.7 kg/m2 72431.2 2 g 68 /min 100 % 18 /min 0 112/70 mm[Hg] Adelaide Hilliard [place] - [facility] 3 10:12:33 Date Recorded Body height Body mass index (BMI) Body weight Body temperature Heart rate Oxygen saturation Respiratory rate Pain severity - 0-10 verbal numeric rating [Score] - Reported Systolic And Diastolic Provider Name and Address Organization Details Last Updated DateTime 3 175.26 cm 26.7 kg/m2 68156.2 2 g 98.4 [degF] 76 /min 98 % 18 /min 0 138/92 mm[Hg] Margarita Deleon [place] - [facility] 3 10:06:54 Date Recorded Body weight Heart rate Oxygen saturation Respiratory rate Pain severity - 0-10 verbal numeric rating [Score] - Reported Body temperature Systolic And Diastolic Provider Name and Address Organization Details Last Updated DateTime 1 13382.4 g 58 /min 97 % 18 /min 4 98.2 [degF] 124/80 mm[Hg] Francisco Nunez [place] - [facility] 1 08:37:16 Date Recorded Body height Body mass index (BMI) Body weight Body temperature Heart rate Oxygen saturation Respiratory rate Pain severity - 0-10 verbal numeric rating [Score] - Reported Systolic And Diastolic Provider Name and Address Organization Details Last Updated DateTime 3 175.26 cm 26.6 kg/m2 92530.6 3 g 98.3 [degF] 83 /min 97 % 18 /min 5 158/90 mm[Hg] Margarita Deleon [place] - [facility] 10:40:22 Social History Question Answer Notes LastModified by Organizat ion Details LastModified Time Tobacco Smoking Status Current Every Day Smoker Francisco arevalo, [place] - [facility] 05/03/2021 08:33:47 What Is Your Level Of Caffeine Consumption? Moderate Information not available 05/03/2021 Which Illicit Or Recreational Drugs Have You Used? Declined, In Recovery Information not available 05/03/2021 Live Alone Or With Others? With Others Information not available 05/03/2021 What Was The Date Of Your Most Recent Tobacco Screening? 01/17/2023 Information not available 01/17/2023 What Is Your Current Pack Years? 20-29packyear s Information not available 01/17/2023 What Is Your Relationship Status? Information not available 05/03/2021 At What Age Did You Start Smoking Tobacco? 15 Information not available 01/17/2023 How Much Tobacco Do You Smoke? 0.5 PPD Information not available 05/03/2021 Has Tobacco Cessation Counseling Been Provided? Yes Information not available 01/17/2023 On What Date Was Tobacco Cessation Counseling Provided? 01/17/2023 Information not available 01/17/2023 How Many Years Have You Smoked Tobacco? 25 Information not available 05/03/2021 Sex: Female Functional Status Question Answer Note LastModified by Organizat ion Details LastModified Time What is your level of alcohol consumption? None Information not available 05/03/2021 Do you or have you ever used smokeless tobacco? Never used smokeless tobacco Information not available 05/03/2021 Are you currently employed? Yes Information not available 05/03/2021 Are you able to walk independently without assistance or assistive devices? YESWOREST Information not available 05/03/2021 Are you able to care for yourself independently? Yes Information not available 05/03/2021 What is your occupation? [employer] in [place] Information not available 05/03/2021 Do you or have you ever used e-cigarettes or vape? Never used electronic cigarettes Information not available 05/03/2021 Mental Status None recorded. Family History Relationship Description Onset Age of this Age Resolved Age Notes LastModified by Organization Details LastModified Time Mother Malignant neoplasm of breast [email or web address] Not available 2020 08:32:53 Medical History No medical history recorded. Gynecological History Statement/Question Response Menses Monthly Y Current Control Method None Date of Last Mammogram LMP Approximate Date of LMP 01/05/2023 Obstetrics History GPAL:G 1 P 1 0 0 1 Type Value Full Term 1 Living 1 Total 1 Immunizations Vaccine Type Date Status Note Provider Nam e and Address Organization Details Recorded Time Tdap 05/03/2021 completed Francisco [place]valo, [place] - [facility] 05/03/2021 11:14:11 Past Encounters Encounter ID Performer Location Encounter Start Date Encounter Closed Date Diagnosis/Indication Diagnosis SNOMED-CT Code Diagnosis ICD10 Code Diagnosis IMO Codes Diagnosis Note [id number] Grisel Mendoza [facility] [address] [place] [address] 05/03/2021 08:22:29 05/03/2021 09:44:38 Adult health examination 355972412 Z00.00 Endocrine/ metabolic screening 565193951 Z13.228 Screening for cardiovascular system disease 448889157 Z13.6 Venereal d isease screening 071868365 Z11.3 Immunization due 3957302 08 Z28.3 History of heroin abuse 6402653637 21768 F11.11 History of methamphetamine abuse 3068525987 1561446 F15.21 History of dysplasia of cervix 984383896 Z87.199 [id number] Kasandra Leyva [place] [address] [place] [address] [address] 01/17/2023 12:56:14 01/17/2023 14:50:15 Dysuria 86260328 R30.0 Nitrite de tected in urine 028236239 R82.998 Patient presents with symptoms of UTI. Results of dipstick were positive for UTI. Urine culture sent. Will call with results. Advised to drink clear fluids and take prescribed medication s as instructed . Low back pain 905403533 M54.50 Neck pain 09797674 M54.2 X-ray ordered at this time. Will call with results.Ad vised the use of OTC medication as needed for discomfort .May apply heat or ice as needed for discomfort . Atypical chest pain 1025 27261 R07.89 Patient educated on when to seek immediate medical care in the ER.EKG results discussed with patient in office Generalize d anxiety disorder 19282944 F41.1 [id number] Grisel Mendoza[address] [place] [address] 02/17/2023 10:07:23 02/17/2023 10:56:56 History of cervical spine fusion 2350226677 101 Z98.1 Anxiety disorder 4611190 06 F41.9 Panic disorder 507767237 F41.0 Community acquired pneumonia 736302019 J18.9 [id number] Grisel Mendoza[address] [place] [address] 03/03/2023 10:00:22 03/03/2023 10:47:47 Anxiety disorder 829532653 F41.9 Long-term drug therapy 542751703 Z79.899 Dysuria 84786649 R30.0 Urinary tr act infectious disease 68413734 N39.0 Panic disorder 961012568 F41.0 Elevated blood-pressure reading without diagnosis of hypertension 447534609 R03.0 [id number] [facility] [address] [place] [address] [place] [address] 05/08/2023 10:20:37 05/08/2023 11:07:47 Anxiety disorder 690944798 F41.9 Panic disorder 411893272 F41.0 Neck pain 75101842 M54.2 Long-term drug therapy 053357496 Z79.899 Dysuria 43049818 R30.0 [place] [facility] ed risk for caregiver role strain [id number] Z91.89 Elevated blood-pressure reading without diagnosis of hypertension [id number] R03.0 Health Concerns Section Related Observation LastModified by Organization Detai ls LastModified Time None Recorded Concern Status LastModified by Organization Details LastModified Time None Recorded Advance Directives Directive None Recorded Payers Insurance Date Sequence Insurance Name Policy Number Policy Rico Covered Member ID Rico Member ID Guarantor Name 05/10/2023 2 [place] [id number] Loren Abebe [id number] Loren Abebe 05/12/2023 1 [employer]ETNA [facility] (MEDICAID HMO) Loren Abebe [id number] Loren Abebe 05/10/2023 [place] [facility] (MEDICAID) Loren Abebe [id number] Loren Abebe Notes Date Note Type Note Provider Name and Address Organization Details Recorded Time 05/03/2021 text/html ROS as noted in the HPI -new patient to establish care, primary care. reports not having PCP for years . does see the clinic in [place] sometimes and is active with a suboxone clinic.-2 years in sobriety after heroin and meth addiction after cervical spine surgery and prescribed pain meds-, cervical spine fusion. has continued daily pain, works full-time in a [employer]-does not use contraception, LMP 04/12/21. states she is sexually active with her spouse, been together over 20 years but were during her addiction and had unprotected sexual encounters, would like complete STI panel. states her hepatitis and HIV was negative when starting suboxone, does not need these repeated. denies vaginal itching, discharge, pelvic pain-denies cp, sob, n/v/d, recent febrile illness, depression, SI. Grisel Reji, LAB SUPPORT SERVICE TECH [address], [place], [address], [place] [facility] 05/03/2021 19:41:56 01/17/2023 text/html ROS as noted in the HPI Patient presents with c/o burning with urination and low back pain x 4 days. Has been using Azo with no benefit. Denies fever, chills, and n/v/d. Patient reports neck pain x 3 days. Pain is constant and 6/10. Patient reports pain intermittently radiates to right shoulder. Has been using ibuprofen with some benefit. Reports history of coprectomy in approx. 2017. 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 Denies headache, vision changes, joint swelling/pain, and numbness/tingling in extremties. Patient reports chest pain x a couple months . Reports chest pain comes and goes. Patient describes pain as achy . Chest pain occurs at rest as well as with exertion and is sometimes accompanied by SOB. Does not resolve with rest. Denies palpitations, diaphoresis, and dizziness. Patient requesting mental health referral. Reports worsening anxiety x 6 months . Endorses increased irritability. Denies SI/HI, depression, and sleep disturbances. Kasandra Autumn, LAB SUPPORT SERVICE TECH [address], [place], [address], [place] [facility] 01/19/2023 08:09:06 02/17/2023 text/html Emergency Depart ment Follow-Up RecordReported by PatientEmergency Room Follow-Up RecordFor discharge information, patient reportsname of hospital/urgent care patient was seen: ([facility]),patient presented to hospital/urgent care on or around: actual date 02/14/23,patient presented to hospital for treatment of: (chest pain, sob),treatment received by hospital/urgent care: (cxr, ecg, labs),patient's condition has: improved, andhospital records available at the time of this visit: no.diagnosed with pneumonia in the ER and treated, is feeling betterROS as noted in the HPI emergency room f/u and to discuss restarting alprazolam for persistent severe anxiety, reports increased stress d/t work.she is active with [facility] (used to be [facility]) for suboxone and addiction treatment, former addict.has consistent neck pain and stiffness, has hx. of cervical spinal fusiondenies continued cp, sob, n/v/d, SI. Grisel Mendoza, LAB SUPPORT SERVICE TECH [address], [place], [address], [place] [facility] 04/06/2023 14:16:42 03/03/2023 text/html ROS as noted in the HPI -Pt presents to the office for recheck of possible recurring UTI.-Pt states that she has finished all ABX and is still having complaints of diarrhea, denies burning, pressure/pain, or discomfort with urination-Has continued c/o severe anxiety with panic symptoms.-Denies SOB, N/V, depression, SI, and is afebrile at today's visit Grisel Mendoza APRN [address], [place], [address], [place] [facility] 04/06/2023 14:26:30 05/08/2023 text/html ROS as noted in the HPI -Pt presents to the office for medication refills-States that her anxiety has increased r/t mother being newly diagnosed with a terminal illness-Loren is currently unemployed, unemployment is trying to starve me out , she has been staying with her Mom everyday-Notes increased panic symptoms including chest pain, sob, uncontrolled crying since learning of Mom's spinal tumors-denies n/v/d, recent febrile illness, hematuria, SI Grisel Mendoza APRN [address], [place], [address], [place] [facility] 05/08/2023 12:24:34 OBGyn Episode Ob Episode Information Episode Created Date Number of Fetuses Patient Bloodtype Patient rh Status Prepregnancy Weight lbs Domestic Partner Domestic Partner Phone Father Name Mortgage Manager Status 05/03/20 21 1 CLOSED Fetus Data First Name Last Name Admitted to NICU Weight (g) Sex Living Outcome Pediatric Complications Fetus ID Race Codes Race Delivery Type 2976.47 [id number] Full Term [id number] Deon Calculation Initial Deon Date Initial Exam Date Initial Exam Provider Initial Ultrasound Date Last Menstrual Period Date Ultra Sound Weeks Gestation 0 Eighteen To Twenty Week Deon Update Ultra Sound Date Fundal Height At Umbil Quickening Date Ultra Sound Latest Weeks Gestation Final Deon Confirmed By Final Deon Confirmed Date Final Deon Date Ultra Sound Latest Days Gestation 0 0 Menstrual History Last Menstrual Date Menses Monthly On Bcp Conception Prior Menses Frequency Hcg Plus Date Menarche Onset Age Delivery Information Delivery Date Delivery Type Labor Anesthesia Weeks Gestation Incision Type Labor Labor Length Hrs Delivered By Post Complications Tubal Sterilization Discharge Date Comments 8 false [facility] Discharge Information Feeding Method Contraceptive Method Maternal HG B and HCT Levels
--- OUTSIDE RECORDS SUMMARY | 2025-10-15 11:56 | XMS_ITS | Clinical Summary ---
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 Name Role Phone Sariah Villeda Unavailable Unavailable Conditions or Problems Problem Name Problem Code Onset Date Status Entry Date Provider Comment Standard Description Annotate Infected discitis(docum ent infectious agent), Cervical region M46.32 (ICD-10-C M) 06/08 Active 06/08 Silvia Falk Infection of intervertebral disc (pyogenic), cervical region Osteomyelitis of vertebra, cervical region M46.22 (ICD-10-C M) 06/08 Active 06/08 Silvia Dileep Osteomyelitis of vertebra, cervical region Intraspinal Abscess [id number] (SNOMED CT) 06/08 Active 06/08 Silvia Dileep Intraspinal abscess Staph aureus sepsis/septice sharron A41.01 (ICD-10-C M) 06/08 Active 06/08 Silvia Dileep Sepsis due to Methicillin susceptible Staphylococcus aureus IVDA (indiscriminat e drug), 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 (ICD-10-C M) 06/08 Active 06/08 Silvia Falk Other psychoactive substance dependence, in remission Nicotine dependence, cigarettes F17.210 (ICD-10-C M) 06/07 Active 06/07 Silvia Dileep Nicotine dependence, cigarettes, uncomplicated Cigarette smoker 51273325 (SNOMED CT) 06/07 Inactive 06/07 Carlos Wylie Cigarette smoker Medications Medication Instructions Start Date Stop Date Generic Name NDC Provider ZOFRAN 4 MG ORAL TABLET by mouth every 6 hours ONDANSETRON HCL [id number] Carlos Wylie ROBAXIN 500 MG ORAL TABLET by mouth every 12 hours METHOCARBAMOL [id number] Carlos Wylie PREDNISONE 20 MG TABS by mouth three times a day PREDNISONE [id number] Carlos Wylie ENDOCET 10-325 MG TABS every 8 hours as needed OXYCODONE-ACETAMI NOPHEN [id number] Carlos Wylie NARCAN 4 MG/0.1ML LIQD as needed NALOXONE HCL [id number] Carlos Dejan IBUPROFEN 200 MG TABS by mouth every 6 hours as needed IBUPROFEN [id number] Carlos Wylie SENNA PLUS 8.6-50 MG TABS by mouth twice daily SENNOSIDES-DOCUSA TE SODIUM [id number] Carlos Wylie CYCLOBENZAPRINE HCL 10 MG TABS by mouth three times a day CYCLOBENZAPRINE HCL [id number] Carlos Wylie ROCEPHIN SOLUTION RECONSTITUTED Rocephin 2GM IV q 12- [facility] [phone]/[facility] CEFTRIAXONE SODIUM SOLR [phone] [facility] ROCEPHIN SOLUTION RECONSTITUTED Rocephin 2GM IV q 12- [facility] 0 05/08 CEFTRIAXONE SODIUM SOLR [id number] [facility] ROCEPHIN SOLUTION RECONSTITUTED Rocephin 2GM IV Daily- [facility] 0 05/08 CEFTRIAXONE SODIUM SOLR [id number] Renu Wilson RN Medications Administered No information available. Allergies, Adverse Reactions, Alerts Observed no known allergies at Results Date Name Value Unit Range Flag Description Chart Maintenance: CMP, CBC, CRP, ESR 06/13 BASOPHIL % 1 % Basophils/ 100 leukocytes in Blood by Manual count % EOS AUTO 3 % Eosinophil s/100 leukocytes in Blood by Automated count MONOCYTE % 8 % Monocytes/ 100 leukocytes in Blood by Automated count Chart Maintenance: lab updat e for 06/20/2017 ESR 18 mm/h Erythrocyte s edimentation rate by Westergren method CRP 6.6 mg/dL C reactive pr otein [Mass/volume] in Serum or Plasma LYMPHS % 45 % Lymphocytes/ 100 leukocytes in Blood by Automated count PMN % 42 % Neutrophils/1 00 leukocytes in Blood by Automated count PLATELETS 437 10*3/mm3 Platelets [#/volume] in Blood by Automated count HCT 35.2 % Hematocrit [V olume Fraction] of Blood by Automated count HGB 11.1 g/dL Hemoglobin [M ass/volume] in Blood RBC 4.33 10*6/mm3 Erythrocytes [#/volume] in Blood by Automated count WBC 5.4 10*3/mm3 Leukocytes [ #/volume] in Blood by Automated count BILI TOTAL 0.2 mg/dL Bilirubin. total [Mass/volume] in Serum or Plasma SGOT (AST) 28 U/L Aspartate aminotransferase [Enzymatic activity/volume] in Serum or Plasma SGPT (ALT) 26 U/L Alanine am inotransferase [Enzymatic activity/volume] in Serum or Plasma ALK PHOS 133 U/L Alkaline maría sphatase [Enzymatic activity/volume] in Blood CREATININE 0.84 mg/dL Creatinine [Mass/volume] in Serum or Plasma BUN 8 mg/dL Urea nitrogen [Mass/volume] in Serum or Plasma CALCIUM 8.7 mg/dL Calcium [Mole s/volume] in Serum or Plasma POTASSIUM 3.9 mmol/L Potassium [ Moles/volume] in Serum or Plasma SODIUM 139 mmol/L Sodium [Moles /volume] in Serum or Plasma GLUCOSE SER 82 mg/dL Glucose [ Mass/volume] in Serum or Plasma Plan of Care No information available. Procedures No information available. Vital Signs No information available. Immunizations No information available. Advance Directives No information available.
--- OUTSIDE RECORDS SUMMARY | 2025-10-15 11:56 | XMS_ITS | Clinical Summary ---
Author Organization Healthcare Address [address] [place] [address] Care Team Providers Care Unemployment Insurance Director Name Role Phone Pcp, No Primary Care Provider Unavailabl e Allergies Active Allergy Reactions Criticality Noted Date Comments Potassium Chloride Other - please document in the comment field Low 04/25/2017 IV potassium caused a burning sensation Medications buPROPion (Wellbutrin) 100 MG tablet Take 0.5 tablets (50 mg) by mouth 2 (two) times a day. 30 tablet 1 08/15/2024 Active metoprolol tartrate (Lopressor) 25 MG tablet Take 0.5 tablets (12.5 mg) by mouth 2 (two) times a day. Please hold if SBP is less than 100 mmHg and/or heart rate is less than 55 beats per. 30 tablet 1 08/15/2024 Active buprenorphine-n aloxone (Suboxone) 8-2 MG SL tablet 11/04/2024 Active Active Problems Problem Noted Date Diagnosed Date Neck pain 12/11/2024 Moderate protein-calorie malnutrition 08/13/2024 Abnormal electrocardiogram (ECG) (EKG) Essential (primary) hypertension 08/08/2024 Hypertensive urgency 08/08/2024 Periapical abscess without sinus 08/08/2024 Unspecified diseases of pulp and periapical tiss ues 08/08/2024 Other specified soft tissue disorders 08/06/2024 Arrhythmia 08/05/2024 Disorientation, unspecified 08/05/2024 Nonspecific intraventricular block 08/05/2024 Old myocardial infarction 08/05/2024 Other disorders of phosphorus metabolism 024 Pain in left arm 08/05/2024 Unspecified open wound of un specified upper arm, initial encounter 08/05/2024 Iron deficiency anemia, unspecified 07/28/2024 Nonrheumatic tricuspid (valve) insufficiency Dependence on other enabling machines and device s 07/26/2024 NSVT (nonsustained ventricular tachycardia) 06/18 SVT (supraventricular tachycardia) 07/15/2024 Bradycardia, unspecified 07/14/2024 Heroin abuse 07/13/2024 Hypokalemia 07/13/2024 Methamphetamine abuse 07/13/2024 Wound of upper extremity, initial encounter 06/17 IV drug abuse 07/12/2024 History of heroin abuse 05/03/2021 History of methamphetamine abuse 05/03/2021 Abscess in epidural space of cervical spine 04/17 Back pain 05/01/2017 Resolved Problems Problem Noted Date Diagnosed Date Resolved Date Encounter for laboratory juan villanueva for COVID-19 virus 12/11/2024 07/06/2025 Intractable nausea and vomiting 07/27/2024 07/06/2025 Family History Medical History Relation Name Comments Hypertension Other 1 Other cancer Other 2 Relation Name Status Comments Other 1 Other 2 Social History Tobacco Use Types Packs/Day Years Used Date Smoking Tobacco: Every Day Humiliation, Afraid, Rape, and Kick questionnair e Answer Date Recorded Within the last year, have y ou been afraid of your partner or ex-partner? Patient declined 08/07/2024 Within the last year, have y ou been humiliated or emotionally abused in other ways by your partner or ex-partner? Patient declined 08/07/2024 Within the last year, have y ou been kicked, hit, slapped, or otherwise physically hurt by your partner or ex-partner? Patient declined 08/07/2024 Within the last year, have y ou been raped or forced to have any kind of sexual activity by your partner or ex-partner? Patient declined 08/07/2024 Social Connection and Isolation Panel Answer Date Recorded Frequency of Communication with Friends and Fami ly Not on file 08/07/2024 Frequency of Social Gatherings with Friends and Family Not on file 08/07/2024 Attends Yarsanism Services Not on file 08/07 Active Member of Clubs or Organizations Not on f ile 08/07/2024 Attends Club or Organization Meetings Not on gil e 08/07/2024 Are you , , di vorced, , never , or living with a partner? 08/07/2024 Hunger Vital Sign Answer Date Recorded Within the past 12 months, y ou worried that your food would run out before you got the money to buy more. Sometimes true Within the past 12 months, t he food you bought just didn't last and you didn't have money to get more. Sometimes true PRAPARE - Transportation Answer Date Re corded In the past 12 months, has l ack of transportation kept you from medical appointments or from getting medications? Yes 07/17 In the past 12 months, has l ack of transportation kept you from meetings, work, or from getting things needed for daily living? No 08/07/2024 Housing Stability Vital Sign Answer Benjamin e Recorded In the last 12 months, was t here a time when you were not able to pay the mortgage or rent on time? Yes 08/07/2024 Number of [address] Lived in the Last Year Not on f ile 08/07/2024 In the last 12 months, was t here a time when you did not have a steady place to sleep or slept in a correction (including now)? No 08/07/2024 Utilities Answer Date Recorded In the past 12 months has th e electric, gas, oil, or water company threatened to shut off services in your home? Yes 08/07/2024 Comments Unknown Sex and Gender Information Value Date Recorded Sex Assigned at Not on file Legal Sex Female 6:31 PM EDT Gender Identity Not on file Sexual Orientation Not on file Last Filed Vital Signs Vital Sign Reading Time Taken Comments Blood Pressure 112/70 08/15/2024 11:53 AM EDT Pulse 51 08/15/2024 11:53 AM EDT Temperature 36.7 C (98.1 F) 08/15/2024 11:53 AM EDT Respiratory Rate 11 08/15/2024 4:02 AM EDT Oxygen Saturation 100% 08/15/2024 11: 53 AM EDT Inhaled Oxygen Concentration - - Weight 63.5 kg (139 lb 15.9 oz) 024 11:00 AM EDT Height 177.8 cm (5' 10 ) 08/07/2024 11: 00 AM EDT Body Mass Index 20.09 08/07/2024 11:00 AM EDT Plan of Treatment Health Maintenance Due Date Last Done Comments [facility]-Depression Screening 1981 [facility]-Infant/Child/Adol SDOH Screenings 1981 [facility]-Varicella Vaccines (1 of 2 - 13+ 2-dose series) 1994 [facility]- SDOH Screenings 1999 [facility]-Adult SDOH Screenings 1999 [facility]-Hepatitis B Vaccines (2 of 3 - 3-dose series) 10/06/1999 09/08/1999 [facility]-Pneumococcal Vaccine: Pediatrics (0 to 5 Years) and At-Risk Patients (6 to 49 Years) (1 of 2 - PCV) 2000 [facility]-Pap Smear 2002 [facility]-Cervical Cancer Screening 2011 [facility]-HPV/Cotest 2011 ANF-WLWZQ-35 Vaccine (2 - season) 2025 05/20/2021 [facility]-Influenza Vaccine (#1) 2025 [facility]-DTaP,Tdap,and Td Vaccines (2 - Td or Tdap) 05/03/2031 05/03/2021 [facility]-Zoster Vaccines (1 of 2) 2031 [facility]-HIV Screening Completed 08/05/2024, 04/27/2017 [facility]-Hepatitis C Screening Completed 2023, 08/05/2024, 04/28/2017, Additional history exists HPV Vaccines (No Doses Required) Completed [facility]-HIB Vaccines Aged Out No longer e ligible based on patient's age to complete this topic [facility]-Hepatitis A Vaccines Aged Out No longer eligible based on patient's age to complete this topic [facility]-IPV Vaccines Aged Out No longer e ligible based on patient's age to complete this topic [facility]-Rotavirus Vaccines Aged Out No lo nger eligible based on patient's age to complete this topic Procedures Procedure Name Priority Date/Time Associated Diagnosis Comments HEPATITIS C ANTIBODY - ED W/REFLEX TO HCV QUANT PCR STAT 08/05/2024 8:57 AM EDT ED HIV 1/2 ANTIBODY/ANTIGEN SCREEN WITH REFLEX TO HIV I/II DIFFERENTIATION STAT 08/05/2024 8:57 AM EDT from Last 3 Months or Most Recently Relevant to Health Maintenance Results * ED HIV 1/2 Antibody/Antigen Screen w/Reflex to HIV 1/2 Differentiation (08/05/2024 8:57 AM EDT) HIV 1 & 2 Antibody/Antigen Screen Non Reactive Non Reactive 08/05/2024 9:49 AM EDT [facility] Comment:Screening for HIV 1 & 2 antibodies, and P24 antigen is NONREACTIVE. No confirmatory testing is required. Blood Venous blood specimen / Unknown Venipuncture / Unknown 08/05/2024 8:57 AM EDT 08/05/2024 9:06 AM EDT Lamin Blue MD LAB BLOOD ORDERABLES Cyndie l Result Performing Organization Address [facility] Co de Phone Number [facility] [address] [place] [address] * Hepatitis C Antibody - ED (08/05/2024 8:57 AM EDT) Hepatitis C Antibody Negative Negative 08/05/2024 9:49 AM EDT [facility] Blood Venous blood specimen / Unknown Venipuncture / Unknown 08/05/2024 8:57 AM EDT 08/05/2024 9:06 AM EDT Lamin Blue MD LAB BLOOD ORDERABLES Cyndie l Result [facility] [address] [place] [address] from Last 3 Months or Most Recently Relevant to Health Maintenance Insurance AETNA [facility] MEDICAID Advance Directives * Full Code (Latest Code Status on File) Date Activated Date Inactivated Comments 08/05/2024 6:31 PM 08/15/2024 4:44 PM Question Answer Comments Patient has decision-making capacity? Yes Care Teams Unemployment Insurance Director Relationship Specialty Start Date End Date Pcp, No [address] [place] [address] PCP - General Family Medicine 08/05/24
--- NOTE | 2025-10-15 12:05 | ECG_ITS ---
APPROVED REPORT Exam: Resting ECG HR:71 bpm ECG Measurements Heart Rate 71 AXES RI 157 P 75 QRSd 81 QRS 57 QT 381 T 72 QTc 404 Conclusion SINUS RHYTHM NORMAL ECG UNCONFIRMED REPORT Electronically signed by : Ji Baumann MD 10/16/2025 08:41:57
[2025-10-15 14:05] LABS: ANTICONVULSANTS ND; BARBITURATES ND; BENZODIAZEPINES ND; CANNABINOIDS ND; CARISOPRODOL & MTB ND; COCAINE & METABOLITE ND; METHADONE ND; OPIATE CLASS ND; TRAMADOL & MTBS ND
[2025-10-15 15:09] LABS: Hematocrit 35.9 % (37.0-47.0); Hemoglobin 11.2 g/dL (12.2-16.2); Immature Granulocytes % 0.2 %; Mean Corpuscular HGB Conc 31.2 g/dL (31.8-35.4); Mean Corpuscular Hemoglobin 24.7 pg (27.0-31.2); Mean Corpuscular Volume 79.2 fl (81-99); Nucleated Red Blood Cells % 0 %; Platelet Count 532 K/mm3 (142-424); Red Blood Count 4.53 M/mm3 (4.20-5.40); Red Cell Distribution Width-SD 50.2 fL; White Blood Count 6.0 K/mm3 (4.8-10.8)
[2025-10-15 15:28] LABS: Albumin Level 4.5 g/dl (3.5-5.0); Chloride 102 mmol/L (98-107); Glucose 90 mg/dl (74-100); Total Protein,Serum 9.3 g/dl (6.3-8.2)
[2025-10-15 15:29] LABS: Alanine Aminotransferase 26 U/L (12-78); Alkaline Phosphatase 172 U/L (38-126); Anion Gap 13.1 mEq/L (5-15); Aspartate Amino Transferase 36 U/L (14-36); Bilirubin,Direct 0.4 mg/dl (0.0-0.4); Bilirubin,Indirect 0.2 mg/dL (0.0-0.9); Bilirubin,Total 0.6 mg/dl (0.2-1.3); Bilirubin,Unconjugated 0.2 mg/dL (0.0-1.1); Blood Urea Nitrogen 20 mg/dl (7-17); Calcium 9.4 mg/dl (8.4-10.2); Carbon Dioxide 26 mmol/L (22.0-30.0); Creatinine,Serum 0.70 mg/dl (0.52-1.04); Estimated Glomerular Filt Rate 91 ml/min (>60); GFR (African American) 110 ML/MIN (>60); Potassium 5.1 mmoL/L (3.5-5.1); Sodium 136 mmol/L (136-145)
[2025-10-18 03:49] LABS: Hep A Ab, Total Positive (Negative)
[2025-10-19 21:08] LABS: AMPHETAMINES ++POSITIVE++ (.); BUPRENORPHINE ++POSITIVE++ (.); Ethanol Biomarkers Negative ng/mL (CUTOFF:500); FENTANYL & ANALOGUES ++POSITIVE++ (.); Marijuana MTB (THC) Negative ng/mL (CUTOFF:20); N/B Ratio 2.92 (>=0.3); OPIATE ANTAGONIST +POSITIVE+ (.)
[2025-10-20 19:10] LABS: Neisseria gonorrhoeae, NAA Negative (Negative)
== END 2025-10-15 23:59 | disposition home or self-care (01) ==
LOC: RT 11:54 → LAB 13:46
PROVIDERS: PCP Nurse Practitioner Family; Visit Provider Nurse Practitioner Family
DX: I45.81 Long QT syndrome (principal); Z01.89 Encounter for other specified special examinations; Z11.3 Encounter for screening for infections with a predominantly sexual mode of transmission; Z11.59 Encounter for screening for other viral diseases; Z11.1 Encounter for screening for respiratory tuberculosis; Z13.89 Encounter for screening for other disorder
CPT/HCPCS: 36415; 80048; 80074; 80076; 80307; 85025; 86706; 86708; 87389; 87491; 87522; 87591; 93005